=== PATIENT | female | born 1960 | race Hispanic/Latino ===

== ENCOUNTER 2017-01-29 22:48 | Inpatient (IN) | payer MEDICARE, MEDICAID ==
[~2017-01-29] VITALS: Ht 162.6 cm; Wt 97.5 kg
[~2017-01-29 22:48] MED LIST: ACET-97 PO; AMLO10TA3 PO; ASPI-628 PO; CHOL5000 PO; CLON0.1T PO; CRAN405C PO; DIL4T PO; DOCU100C8 PO; DULO60CA42 PO; INSU100V7 SUBQ; ISON300T4 PO; LACT1CAP65 PO; LEVO50TA6 PO; METO50TA3 PO; MS30TCR PO; MULT-185 PO; ONDA-54 PO; POLY17PO6 PO; PRAV40TA PO; PYRI50TA6 PO; RIFA300C4 PO; SENN8.6T11 PO; TRIA1TAB5 PO
[2017-01-29 22:55] VITALS: BP 174/72; PULSE 66; RESP 16; O2SAT 92
--- NOTE | 2017-01-29 23:22 | ED.REPORT ---
HPI-Chest Pain 40 and Over Date of Service Jan 29, 2017 ED Provider: Manny Beach DO Pt is a 56 year old female with a history of DM, HTN, hyperlipidemia, TIA, and CVA who presents to the ED via EMS complaining of tight chest pain onset 3 days ago. She c/o associated swelling in her legs and arms, SOB, and left-sided weakness. She denies cough. Nursing Notes Stated Complaint: CHEST PAIN Chief Complaint: Chest Pain Nursing Notes Reviewed: Yes Allergies: Coded Allergies: No Known Allergies (Verified Allergy, Unknown, 09/05/14) Scheduled Acetaminophen (Acetaminophen) 500 Mg Tablet 500 MG PO Q6 Amlodipine (Amlodipine) 10 Mg Tablet 10 MG PO DAILY Aspirin (Aspir 81) 81 Mg Tablet.dr 81 MG PO DAILY Cholecalciferol (Vitamin D3) (Vitamin D3) 5,000 Unit Capsule 5,000 UNIT PO DAILY Clonidine (Clonidine) 0.1 Mg Tablet 0.3 MG PO TID Cranberry Extract (Cranberry) 405 Mg Capsule 405 MG PO DAILY Docusate Sodium (Docusate Sodium) 100 Mg Capsule 100 MG PO BID Duloxetine (Cymbalta) 60 Mg Capsule.dr 60 MG PO DAILY Insulin Glargine (Lantus U100 Insulin Vial) 100 Unit/Ml Vial 6 UNIT SUBQ QPM- INSULIN Isoniazid (Isoniazid) 300 Mg Tablet 900 MG PO MOWEFR Lactobacillus Acidophilus (Probiotic) 1 Each Capsule 1 EACH PO DAILY Levothyroxine (Levothyroxine) 50 Mcg Tablet 50 MCG PO DAILY Metoprolol Tartrate (Metoprolol Tartrate) 50 Mg Tablet 50 MG PO BID Morphine Sulfate ER (MS Contin) 30 Mg Tablet.er 30 MG PO Q8 Multivitamin with Minerals (Multivitamins with Minerals) 1 Each Tablet 1 EACH PO DAILY Pravastatin (Pravastatin) 40 Mg Tablet 40 MG PO HS Pyridoxine HCl (Pyridoxine) 50 Mg Tablet 50 MG PO MOWEFR Rifampin (Rifampin) 300 Mg Capsule 600 MG PO MOWEFR Sennosides (Senna Lax) 8.6 Mg Tablet 8.6 MG PO DAILY Triamterene/HCTZ 75-50 mg (Triamterene/HCTZ 75-50 mg) 1 Each Tablet 1 EACH PO AM Scheduled PRN Hydromorphone (Dilaudid) 4 Mg Tablet 4 MG PO Q4 PRN PRN For Pain Ondansetron (Ondansetron) 8 Mg Tablet 8 MG PO Q6 PRN PRN For Nausea Polyethylene Glycol 3350 (Miralax) 17 Gm/Pkt Powd.pack 17 GM PO DAILY PRN PRN For Constipation General Time Seen by MD: 23:21 Chief Complaint Chest pain Hx Obtained From: Patient, EMS Arrived By: Ambulance Sudden in Onset?: No Onset Occurred: 3 days ago Symptom Duration: Since onset Location: : Substernal Quality: Painful Severity: Current: Moderate Severity: Maximum: Moderate Recent Healthcare: No recent doctor visit, No recent hospitalization Similar Sx Previous: Yes Similar Sx Previous: No Past Medical History Past Medical History Notes: PCP: Dr. Sinclair Past Medical History Pott's disease DM Hx of TIA HTN Hyperlipidemia Reports: Diabetes mellitus, Hyperlipidemia, Hypertension, Transient ischemic attack, Denies: Congestive heart failure Past Surgical History Denies Family History Reviewed, not relevant Smoking History Never Smoker Social History Alcohol Use: Denies alcohol use Drug Use: Denies drug use Other Social History: Good social support Ambulatory Status Independent Review of Systems Basic Review of Systems Eyes: Vision NL ENT: Hearing NL, No pharyngeal pain : No dysuria Hematologic: No bleeding Endocrine: No cold intolerance, No heat intolerance, No weight loss Constitutional: Reports: Weakness - generalized Respiratory: Reports: Shortness of breath, Denies: Non-productive cough Cardiovascular: Reports: Chest pain Musculoskeletal: Reports: Extremity swelling Complete sys rev & neg: except as marked. Physical Exam Initial Vital Signs Vital Signs (First) Date Time Temp Pulse Resp B/P Pulse Ox O2 Delivery O2 Flow Rate FiO2 01/29/17 22:55 66 16 174/72 92 Nasal Cannula 2 Initial VS: Reviewed Head / Eyes: Atraumatic, Normocephalic ENT: Mucous membranes moist, Conjunctiva normal, No scleral icterus Neck: Supple, Full range of motion Extremities: Vascular intact, Neuro intact Skin: Warm Neurologic: Alert, Oriented, Nonfocal Psychiatric: Mood/affect normal, Behavior normal General/Constitutional: Awake, Alert, Cooperative, Not toxic appearing Appearance / Presentation: Positive: Obese, morbidly Respiratory / Chest: Breath sounds = bilat Crackles. Cardiovascular: Heart rate NL, Regular rhythm Heart Sounds / Murmur: Positive: Systolic murmur present.. (ejection) Mild JVD. Abdomen: Atraumatic, Soft, Non-tender Interpretation & Diagnostics Lab Results Interpretation Result Diagram: 01/29/17 2310 01/29/17 2310 Test 01/29/17 22:10 01/29/17 23:10 Hold Ma Top Tube Received (Received) White Blood Count 8.4th/mm3 (3.8-10.1) Red Blood Count 3.12mil/mm3 (3.90-5.20) Hemoglobin 9.4g/dL (12.0-15.6) Hematocrit 30.0% (35.0-46.0) Mean Corpuscular Volume 96.2fL (81-100) Mean Corpuscular Hemoglobin 30.1pg (27.0-35.0) Mean Corpuscular Hemoglobin Concent 31.3% (32.0-37.0) Red Cell Distribution Width 13.4% (12.3-15.4) Platelet Count 307bil/L (150-400) Neutrophils (%) (Auto) 71.9% (40-74) Lymphocytes (%) (Auto) 19.4% (14-46) Monocytes (%) (Auto) 6.9% (4-12) Eosinophils (%) (Auto) 1.2% (0-5) Basophils (%) (Auto) 0.5% (0-3) Sodium Level 136mEq/L (134-144) Chloride Level 99mEq/L (97-108) Carbon Dioxide Level 25mmol/L (18-29) Blood Urea Nitrogen 30mg/dL (6-24) Creatinine 2.15mg/dL (0.57-1.00) Estimat Glomerular Filtration Rate 34mL/min (>59) Glucose Level 261mg/dL (60-99) Lactic Acid Level 1.2mmol/L (0.4-2.0) Calcium Level 8.7mg/dL (8.5-10.1) Magnesium Level 3.5mg/dL (1.6-2.6) Total Bilirubin 0.2mg/dL (0.0-1.2) Aspartate Amino Transf (AST/SGOT) 10U/L (0-50) Alanine Aminotransferase (ALT/SGPT) 7U/L (0-32) Alkaline Phosphatase 134U/L (25-150) Troponin T 0.027ug/L (0.0-0.011) Pro-B-Type Natriuretic Peptide 3040pg/mL (0-287) Total Protein 7.1g/dL (6.4-8.4) Albumin 3.5g/dL (3.4-5.0) Procalcitonin 0.16ng/mL (0.00-0.08) Point of Care Testing: Hemoglobin low General Lab Results Interp 1: Troponin # 1 elevated General Lab Results Interp 2: BNP elevated ECG Interpretation ECG Interpretation: Sinus rhythm with a rate of 66 Time: 23:04 Interpreted by: ED physician Normal ECG Interpretation: Normal sinus rhythm (no signs of hyperkalemia) Rhythm Strip Interpretation : Time: 01:08 Rhythm Strip Interpretation: Interpreted by me, Normal sinus rhythm (77 narrow complex T waves not peaked) BMP / CMP Interpretation K+ elevated X-Ray Chest Interpretation Chest Xray Interpretation: Vascular congestion. Exudates bilaterally. Interpretation / Wet Read by: Wet read ED physician (.) Re-Eval/Medical Decision Med Decision/Clinical Course 56-year-old female presents with tightness in her chest and swelling. She is found to be hypoxic and have signs of heart failure. EKG is nearly normal though. Laboratory work shows hyperkalemia with potassium greater than 6.0. Renal insufficiency with an elevated BUN/creatinine. Elevated troponin. IV access was obtained. She received IV fluids, IV insulin and IV diuretics and oral Kayexalate. She is making urine. She is breathing better on oxygen. She was hypoxic. Chest x-ray shows what looks like vascular congestion but there certainly could be pneumonia superimposed. Assessment hyperkalemia, congestive heart failure, renal insufficiency, elevated troponin, chest pain. Plan: We will treat her hyperkalemia and congestive heart failure and renal insufficiency on the inpatient basis. The hyperkalemia has been acutely treated in the ED and we will repeat the potassium. Further care per hospitalist service. Source of Hx: Old records Time of Eval: 00:39 Re-Evaluation/Progress Note: Pt rechecked. Informed pt of plan for admit. Pt understands and agrees with plan admit. All questions addressed. Consultation : Referral / Consult Name: Cristal Arriaza DO Consulted With: Hospitalist Call Returned at: 01:38 Concrete Paving Supervisor: Will see patient, Agrees with eval, Agrees with plan, Accepts admit Counseled Regarding: Diagnosis, Lab results, Need for admission Discharge & Departure Primary Impression: Hyperkalemia Additional Impressions: Acute renal insufficiency CHF (congestive heart failure) Congestive heart failure type: unspecified congestive heart failure type Congestive heart failure chronicity: unspecified congestive heart failure chronicity Qualified Code: I50.9 - Heart failure, unspecified Chest pain Chest pain type: unspecified Qualified Code: R07.9 - Chest pain, unspecified Disposition: ADMITTED TO HOSPITAL Discharge Condition All VS Reviewed: Yes Condition: Stable Referrals: Cathy Sinclair MD (PCP) Crit Care Except Billable Proc Time Spent: 135-164 minutes Services Performed: Patient management by me (managing her critical hyperkalemia), Time spent at bedside, Reviewing test results, Reviewing imaging , Discussing patient care, Time with fam/surrogate Scribe Attestation Portions of this note were transcribed by Ira Nobles. I, Dr. Beach personally performed the history, physical exam and medical decision-making; I reviewed and confirmed the accuracy of the information in the transcribed note. Signed by: Kacey Montalvo, 01/30/17 and 1:50. copies to: Cathy Sinclair MD, Todd P DO Jan 29, 2017 23:22 Ira Pulido Jan 30, 2017 00:44 copies to: Cathy Sinclair MD, Todd P DO Jan 29, 2017 23:22 Ira Pulido Jan 30, 2017 00:44
[2017-01-29 23:24] LABS: BASOPHILS % (AUTO) 0.5 % (0-3); EOSINOPHILS % (AUTO) 1.2 % (0-5); MONOCYTES % (AUTO) 6.9 % (4-12); Mean Corpuscular Hemoglobin 30.1 pg (27.0-35.0); Mean Corpuscular Volume 96.2 fL (81-100); NEUTROPHILS % (AUTO) 71.9 % (40-74); Platelet Count 307 bil/L (150-400)
[2017-01-29 23:47] LABS: TROPONIN T 0.027 ug/L (0.0-0.011)
[2017-01-29] MEDS ORDERED: Nitroglycerin 2% 1 Gm Ointment TOPICAL ONE (23:55)
[2017-01-29 23:59] LABS: Magnesium 3.5 mg/dL (1.6-2.6)
[2017-01-30] VITALS (11 sets, daily range): BP systolic 160–195; BP diastolic 64–94; PULSE 65–77; RESP 11–20; O2SAT 90–97
[2017-01-30] MEDS ORDERED: Albuterol 2.5 mg/3 mL Inhalation Solution NEB ONE (00:10)
[2017-01-30] MEDS ORDERED: Insulin Human REGular-Omnicell 100 Unit/mL IV ONE (00:10)
[2017-01-30] MEDS ORDERED: Furosemide 10 mg/mL 4 mL Inj IVPUSH ONE (00:40)
[2017-01-30] MEDS ORDERED: Dextrose 10% 250 ML IV ONE (01:29)
[2017-01-30] MEDS ORDERED: Alum-Mag Hydrox-Simeth 30 mL Suspension PO PRN (01:45)
[2017-01-30] MEDS ORDERED: Ondansetron 2 mg/mL 2 mL Inj IVPUSH PRN (01:45)
[2017-01-30] MEDS ORDERED: Senna-Docusate 8.6-50 mg Tablet PO PRN (01:45)
[2017-01-30] MEDS ORDERED: Polyethylene Glycol (PEG) 17 Gm Powder PO PRN (01:45)
--- NOTE | 2017-01-30 02:36 | PCM.HPMED ---
Subjective Date of Service Jan 30, 2017 Primary Provider: Admitting Physician: Cristal Arriaza DO Primary Care Physician: Cathy Sinclair MD Attending Physician: Cristal Arriaza DO Chief Complaint: Shortness of breath, chest pain History of Present Illness: Patient is a 56-year-old woman with history of diabetes mellitus type II, hypertension, hyperlipidemia, TIAs and CVAs with left-sided deficit, renal insufficiency, presents to [facility] via EMS with her son after progressing shortness of breath and chest pain going on for 3 days. Son conveys that her physicians at [facility] have changed her diuretics so that she would not urinate as much, and consequently has decreased her urination and has begun swelling up in her arms and legs. Patient has orthopnea, denies dry cough , describes chills in the last few hours, has dysuria, and nausea. On presentation, 37 Celsius, 66, 16, 174/72, 92% on 2 L nasal cannula. WBC 8.4, Hgb 9.4. Sodium 136, potassium 6.2, carbon dioxide, BUN 30, creatinine 2.15, glucose 261 , magnesium 3.5, troponin 0.027, BNP 3040, procalcitonin 0.16 Urine: 30 protein Moderate leukocyte esterase, 11-50 white blood cells, occasional epithelial cells, many urine yeast, sent for culture EKG: Sinus rhythm rate 66, normal axis, no signs of IVCD, QTC 477, signs of acute infarct, ischemia, or hypertrophy or strain. Chest x-ray: described as vascular congestion, bilateral exudates. Evaluation revealed hyperkalemia, urinary tract infection, hyperglycemia, evidence of fluid overload, renal insufficiency and possible pneumonia. Started on Lasix in the ER, Kayexalate, insulin, and admitted to the hospital for management and treatment. Review of Systems: A comprehensive review of systems was conducted with the patient and found to be negative except as above in the history of presenting illness. Allergies Coded Allergies: No Known Allergies (Verified Allergy, Unknown, 09/05/14) Home Medications Medication list as conveyed by EMS to emergency room staff, patient and family member unable to provide a list. Scheduled Acetaminophen (Acetaminophen) 500 Mg Tablet 500 MG PO Q6 Amlodipine (Amlodipine) 10 Mg Tablet 10 MG PO DAILY Aspirin (Aspir 81) 81 Mg Tablet.dr 81 MG PO DAILY Cholecalciferol (Vitamin D3) (Vitamin D3) 5,000 Unit Capsule 5,000 UNIT PO DAILY Clonidine (Clonidine) 0.1 Mg Tablet 0.3 MG PO TID Cranberry Extract (Cranberry) 405 Mg Capsule 405 MG PO DAILY Docusate Sodium (Docusate Sodium) 100 Mg Capsule 100 MG PO BID Duloxetine (Cymbalta) 60 Mg Capsule.dr 60 MG PO DAILY Insulin Glargine (Lantus U100 Insulin Vial) 100 Unit/Ml Vial 6 UNIT SUBQ QPM- INSULIN Isoniazid (Isoniazid) 300 Mg Tablet 900 MG PO MOWEFR Lactobacillus Acidophilus (Probiotic) 1 Each Capsule 1 EACH PO DAILY Levothyroxine (Levothyroxine) 50 Mcg Tablet 50 MCG PO DAILY Metoprolol Tartrate (Metoprolol Tartrate) 50 Mg Tablet 50 MG PO BID Morphine Sulfate ER (MS Contin) 30 Mg Tablet.er 30 MG PO Q8 Multivitamin with Minerals (Multivitamins with Minerals) 1 Each Tablet 1 EACH PO DAILY Pravastatin (Pravastatin) 40 Mg Tablet 40 MG PO HS Pyridoxine HCl (Pyridoxine) 50 Mg Tablet 50 MG PO MOWEFR Rifampin (Rifampin) 300 Mg Capsule 600 MG PO MOWEFR Sennosides (Senna Lax) 8.6 Mg Tablet 8.6 MG PO DAILY Triamterene/HCTZ 75-50 mg (Triamterene/HCTZ 75-50 mg) 1 Each Tablet 1 EACH PO AM Scheduled PRN Hydromorphone (Dilaudid) 4 Mg Tablet 4 MG PO Q4 PRN PRN For Pain Ondansetron (Ondansetron) 8 Mg Tablet 8 MG PO Q6 PRN PRN For Nausea Polyethylene Glycol 3350 (Miralax) 17 Gm/Pkt Powd.pack 17 GM PO DAILY PRN For Constipation PMH Pott's disease DM Hx of TIA HTN Hyperlipidemia Reports: Diabetes mellitus, Hyperlipidemia, Hypertension, Transient ischemic attack, Denies: Congestive heart failure Surgical History Denies any surgical history Social History Hx Alcohol Use: No Hx Substance Use: No Hx Tobacco Use: No Smoking Status: Never Smoker Living Arrangement: with Family Exam Vital Signs Vital Sign - Last Date Time Temp Pulse Resp B/P Pulse Ox O2 Delivery O2 Flow Rate FiO2 01/30/17 02:01 37 69 20 186/79 92 Nasal Cannula 3 Intake and Output 601/29/17 01/30/17 Cumulative From/Thru 14:59 22:59 06:59 01/29/17 22:55 - 01/30/17 01:30 Intake Total 250 ml 250 ml Balance 250 ml 250 ml Intake IV Total 250 ml 250 ml Exam General: Laying in bed, mildly uncomfortable, morbidly obese HEENT: Normocephalic, atraumatic, EOMI grossly, his membranes moist, neck supple without lymphadenopathy, conjunctiva pink Cardiovascular: Regular rate and rhythm, 2 out of 6 blowing systolic murmur right upper sternal border peripheral pulses 2/4 equal bilaterally to upper and lower extremities. Pulmonary: Bibasilar rales, rhonchi appreciated in mid left lung field, no wheezing Abdominal: Soft to palpation, bowel sounds present 4, no hepatosplenomegaly. Negative rebound. Extremities: Bilateral edema to upper and lower extremities, pitting edema to the level of the ankle, mild. No open sores, wounds, or weeping. No discoloration. Neuro: Grossly neurologically intact, cranial nerves II through XII intact. Skin: no erythema, ecchymosis MSK: Able to move extremities on their own volition, strength 5 out of 5 equal bilaterally to upper and lower extremities. Lymph: no cervical or supraclavicular lymphadenopathy Lab and Diagnostics Result Diagram: 01/29/17230901/29/172309 X-Rays, CTs and MRIs Chest x-ray performed January 29 2017 -described as vascular congestion, bilateral exudates. Wet read by ER physician 12-lead ECG EKG: Sinus rhythm rate 66, normal axis, no signs of IVCD, QTC 477, signs of acute infarct, ischemia, or hypertrophy or strain. Assessment & Plan 56-year-old woman with diabetes type II insulin using, chronic renal failure, presents with 3 days of increasing limb edema, shortness of breath and chest pain, denies history of CHF, stated that there was a recent change in her diuretic medication, found to have worsening renal function, likely pulmonary edema, elevated BNP, urine sample consistent with urinary tract infection, elevated pro-calcitonin, and hyperkalemia. Acute Hypoxemic respiratory failure, POA, active Volume emergency department and SPO2 of 90% on 5 L of nasal cannula oxygen Attributed to pulmonary edema secondary to possible congestive heart failure ABG now BiPAP if needed Treatment of fluid retention as below. Acute Hyperkalemia, POA, active Serum potassium 6.2, EKG did not show typical tenting, mental status intact. Kayexalate, insulin, Lasix. Recheck BMP Acute fluid retention with pulmonary edema, present on admission, active Possibly due to CHF new onset patient denies any previous history of heart failure, however has had chronic renal insufficiency. Possibly developing cardiorenal syndrome. 40 mg of Lasix has been given IV, Monitor in and out's, daily weights. 40 mg Lasix daily, repeat if necessary. Liver enzymes normal. Acute on chronic renal insufficiency, present on admission, active Serum creatinine 2.15, historically elevated but not greater than 1.27. As above, believed to be due to developing cardiorenal syndrome. Patient received fluid bolus, plus Lasix If no improvement after 2 doses of Lasix, consider nephrology consultation. Chronic diabetes mellitus type II Insulin using, uncontrolled, POA, active Blood glucose is 261, insulin given as above for potassium management Medium dose correctional insulin Home medications show large insulin 6 units subcutaneous nightly. Q4 Accu-Cheks Diabetes education Constant Carb diet, NPO until ECHO. Urinary tract infection, POA, active Dysuria, decreased urine frequency secondary to change in medication, moderate leukocyte esterase, positive white blood cells and urine. Patient has history of Klebsiella UTI. Ceftriaxone 2 g IV every 24 hours ProCalcitonin mildly elevated at 0.16 Elevated troponin, POA, active 0.027, appears to be at the level previous admission in 2013, felt to be secondary to demand ischemia from pulmonary edema, fluid retention, cardiorenal syndrome, decreased clearance from renal insufficiency, however infarction cannot be ruled out. Patient continues to complain of substernal chest pain, 8 out of 10, will trend troponin, if elevated start heparin drip, with cardiology consult. Place patient on telemetry Chronic hypertension, controlled, POA, active Most recent blood pressure 186/79 Amlodipine 10 mg daily, clonidine 0.3 milligrams 3 times a day, metoprolol tartrate 50 mg twice a day, triamterene/HCTZ 75-50 mg daily Await confirmation of medications. Lasix as above, metoprolol XL 25 mg now. Nitroglycerin drip, transverse CCU. Chronic Morbid obesity, POA, BMI 35.9. Active Nutrition/dietitian consult History of CVA and TIA, POA, active Continue home medications of ASA 81 mg daily, pravastatin 40 mg every night before bed, Blood pressure and diabetes management as above History of Ely disease, POA, stable Medications provided by EMS states she is still on rifampin and isoniazid, continue from ambulatory Awaiting confirmation from [facility] Chronic pain, POA, active Secondary to Ely disease Outpatient medications state MS Contin 30 mg by mouth every 8 hours scheduled, with Dilaudid 4 mg by mouth every 4 hours as needed for pain. Confirm current regimen in the morning Medication Reconciliation to be completed. Need updated medication list. Patient is admitted to inpatient status. Anticipate greater than two midnight stay based on acuity of presenting symptoms, anticipated management and potential for adverse advents. Pain Evaluation: Pain not Controlled GI Prophylaxis: H2 homero VTE Prophylaxis: Sub-Q Heparin (Unfractionated) Resuscitation Status: CPR: Attempt Resuscitation Attending Statement The patient was seen and examined together with house staff on 01/30/2017 and I agree with the history, exam and plan as outlined in the note above. Galdino Grewal DO Jan 30, 2017 02:36 Cristal Arriaza DO Jan 30, 2017 06:37
--- NOTE | 2017-01-30 02:51 | ABG ---
DateTimeAnalyzed 02:43:11 -_ pCO2 ___50.7__ -mmHg 35.0 45.0 pO2 ___72.2__ -mmHg 69.0 116 tHb ____9.2__ -g/dL O2Hb ___92.7__ -% COHb ____1.3__ -% 1.5 MetHb ____0.3__ -% sO2 ___94.1__ -% FIO2 ___37.0__ -% Drawn By MK - Date/Time Notified____ 02:50:00 -_ Oxygen Device 1 __CANNULA - Notified By MK - tO2 ___12.1__ -Vol% Bello test _Positive -
--- NOTE | 2017-01-30 02:58 | NUR ---
Ph did not result on the blood gas, Spoke with Dr Harrell and he was fine witht he results that were given and no need to restick the patient
[2017-01-30] MEDS ORDERED: Nitroglycerin 50 mg/250 mL D5W 50,000 MCG in IV Premix 1 EACH IV SCH (03:15)
[2017-01-30] MEDS ORDERED: MeTOProlol XL 25 mg ER24 Tablet PO ONE (03:20)
[2017-01-30] MEDS: cefTRIAXone Inj 2,000 MG in Dextrose 5% Minibag Plus 50 ML IV SCH (03:35)
[2017-01-30] MEDS: Pantoprazole 40 mg ER24 Tablet PO SCH (05:38)
[2017-01-30] MEDS ORDERED: Dextrose 10% 250 ML IV PRN (05:50)
--- NOTE | 2017-01-30 06:02 | NUR ---
PCC Admit and CCU in Transfer Admitted pt from ED @ 0230 for hyperkalemia, CP, ARF. Pt on 4.5L NC, dyspneic at rest and exertion, with panel builder, c/o 8/ mid-chest pain, non-radiating, NSR on tele, hypertensive with SBP 180's mmhg. Given morphine 5mg po and metoprolol 25mg po for HTN, relieved from chest pain, BP still high. Transfer in to CCU @ 0335 to start nitro gtt for CP and HTN. Pt voided total of 1200 via BSC, K+ 4.6 from 6.2.
[2017-01-30 07:37] LABS: BASOPHILS % (AUTO) 0.4 % (0-3); EOSINOPHILS % (AUTO) 1.3 % (0-5); Mean Corpuscular Hemoglobin 29.9 pg (27.0-35.0); Mean Corpuscular Volume 96.7 fL (81-100); NEUTROPHILS % (AUTO) 65.5 % (40-74); Platelet Count 268 bil/L (150-400)
[2017-01-30] MEDS: Sodium Chloride LOK Flush 10 mL Syringe IVFLUSH SCH ×2 (07:52→16:32)
--- NOTE | 2017-01-30 07:57 | DRSVH ---
PROCEDURE: X-RAY CHEST ONE VIEW, PORTABLE ([id number]) INDICATIONS: CHEST PAIN TECHNIQUE: One view of the chest was acquired. COMPARISON: 02/19/2015. FINDINGS: Surgical changes and devices: None. Lungs and pleura: Small bilateral pleural effusions left greater than right. Increased interstitial m arkings bilaterally, predominantly lower lobe. Mediastinum: Mediastinal contours appear normal. Heart size is normal. Bones and chest wall: No suspicious bony lesions. Overlying soft tissues appear unremarkable. IMPRESSION: Probable pulmonary edema with small bilateral pleural effusions. Superimposed or underlyi ng pneumonia cannot be excluded. Dictated by: Vishal Braswell M.D. on 01/30/2017 at 7:54 Approved by: Vishal Braswell M.D. on 01/30/2017 at 7:56
[2017-01-30] MEDS: Insulin Human REGular 300 Unit/3 mL Inj SUBQ SCH ×3 (08:14→20:39)
[2017-01-30] MEDS ORDERED: Furosemide 10 mg/mL 4 mL Inj IVPUSH SCH ×2 (08:30→16:13)
[2017-01-30] MEDS ORDERED: ACET500C49 PO (09:43)
[2017-01-30] MEDS ORDERED: ASPI-973 PO (09:43)
[2017-01-30] MEDS ORDERED: DOCU-41 PO (09:44)
[2017-01-30] MEDS ORDERED: SENN-133 PO (09:45)
[2017-01-30] MEDS: Heparin 5,000 Unit/mL Inj SUBQ SCH ×2 (10:18→16:32)
--- NOTE | 2017-01-30 14:06 | NUR ---
Social Work: Initial Assessment D: Per EMR review, pt is a 56 year old female admitted for Hyperkalemia, Acute Renal Failure, CHF. Pt is Medicare with [facility]; pt has no LTC insurance or VA benefits. PCP is Cathy Sinclair MD. NOK is Colt Batista, son, and Inga Batista dtr. Advanced directives information provided to patient. No RA Score entered. DRAWER IN STITCH BONDING MACHINE met with patient and son at bedside. Pt is [place] Islander speaking; pt declined to have an kiln puller and requested that her son provided translation. Sw information and role explained. See initial assessment. Pt lives with her family in [place]. Pt has not been using any DME but owns a walker and cane. Pt has a history with [facility] for RN, PT, kajal [facility]. Pt also had [facility] in the past but no longer requires these service. Pt has a history at [facility] and [facility]. Family and patient anticipate taking the patient home when she is medically stable. A: Pt who lives at home with family. P: Evolving; Anticipate pt to discharge home via POV. DRAWER IN STITCH BONDING MACHINE to continue to follow to assess for discharge needs. NICOLLE Silva Addendum: 01/30/17 at 1416 by ADWOA AUGUSTIN Amended: Links added.
--- NOTE | 2017-01-30 15:54 | PCM.PNMED ---
Subjective Date of Service Jan 30, 2017 Subjective Patient states that her breathing is much improved, and that her chest pain has essentially resolved. She has not other complaints at this time. No significant overnight events. Comprehensive ROS negative except as listed above. Exam Vital Signs Vital Sign - Last Date Time Temp Pulse Resp B/P Pulse Ox O2 Delivery O2 Flow Rate FiO2 01/30/17 15:28 Supplement Oxygen 01/30/17 11:14 36.8 72 14 195/76 96 4.50 Intake and Output 01/29/17 01/29/17 01/30/17 Cumulative From/Thru 15:00 23:00 07:00 01/29/17 22:55 - 01/30/17 06:30 Intake Total 412 ml 412 ml Output Total 1200 ml 1200 ml Balance -788 ml -788 ml Intake Oral 100 ml 100 ml IV Total 312 ml 312 ml Output Urine Total 1200 ml 1200 ml # Bowel Movements 0 0 Exam Gen: A/O x3 pleasant Arabic speaking woman in NAD Neck: supple, non tender, no thyromegaly, no JVD HEENT: PERRL, EOMI, no scleral icterus, no conjunctival pallor CV: RRR, 2/6 holosystolic murmur, no rubs or gallops Resp: Lungs CTA BL, no wheezing rales or rhonchi Abdomen: Obese, soft, nontender, no organomegaly, no rebound or guarding Extr: Mild BL LE edema, no cyanosis or clubbing Neuro: CN 2-12 grossly intact, no focal neurologic deficit Psych: appropriate mood and affect IVs and Medications Medications Reviewed: Medications were reviewed in detail Lab and Diagnostics Item Value Date Time Red Blood Count 2.71 mil/mm3 L 01/30/17726 Mean Corpuscular Volume 96.7 fL 01/30/17726 Mean Corpuscular Hemoglobin 29.9 pg 01/30/17726 Mean Corpuscular Hemoglobin Concent 30.9 % L 01/30/17726 Red Cell Distribution Width 13.2 % 01/30/17726 Neutrophils (%) (Auto) 65.5 % 01/30/17726 Lymphocytes (%) (Auto) 23.6 % 01/30/17726 Monocytes (%) (Auto) 9.0 % 01/30/17726 Eosinophils (%) (Auto) 1.3 % 01/30/17726 Basophils (%) (Auto) 0.4 % 01/30/17726 Estimat Glomerular Filtration Rate 38 mL/min 01/30/17726 Calcium Level 8.2 mg/dL L 01/30/17726 Total Bilirubin 0.2 mg/dL 01/30/17726 Aspartate Amino Transf (AST/SGOT) 12 U/L 01/30/17726 Alanine Aminotransferase (ALT/SGPT) 6 U/L 01/30/17726 Alkaline Phosphatase 116 U/L 01/30/17726 Troponin T 0.010 ug/L 01/30/17726 Total Protein 5.8 g/dL L 01/30/17726 Albumin 3.1 g/dL L 01/30/17726 Result Diagram: 01/30/1772601/30/17726 Microbiology Blood cultures pending Nasal MRSA negative X-Rays, CTs and MRIs X-RAY CHEST ONE VIEW, PORTABLE IMPRESSION: Probable pulmonary edema with small bilateral pleural effusions. Superimposed or underlying pneumonia cannot be excluded. Dictated by: Vishal Braswell M.D. on 01/30/2017 at 7:54 Approved by: Vishal Braswell M.D. on 01/30/2017 at 7:56 . 12-lead ECG EKG: Sinus rhythm rate 66, normal axis, no signs of IVCD, QTC 477, signs of acute infarct, ischemia, or hypertrophy or strain. Assessment & Plan 56-year-old woman with diabetes type II insulin using, chronic renal failure, presents with 3 days of increasing limb edema, shortness of breath and chest pain, denies history of CHF, stated that there was a recent change in her diuretic medication, found to have worsening renal function, likely pulmonary edema, elevated BNP, urine sample consistent with urinary tract infection, elevated pro-calcitonin, and hyperkalemia. Acute Hypoxemic respiratory failure, POA, improving -Initial respiratory distress in the emergency department with SPO2 of 90% on 5 L of nasal cannula oxygen -Attributed to pulmonary edema secondary to possible congestive heart failure -BiPAP if needed -Treatment of fluid retention as below. Acute Hyperkalemia, POA, Improved -Serum potassium 6.2, EKG did not show typical tenting, mental status intact. -Kayexalate, insulin, Lasix. -Repeat CMP K trended to normal Acute fluid retention with pulmonary edema, present on admission, active -Possibly due to CHF new onset patient denies any previous history of heart failure, however has had chronic renal insufficiency. Possibly developing cardiorenal syndrome. -40 mg of Lasix has been given IV, with be repeated daily -Monitor in and out's, daily weights. -Liver enzymes normal. Acute on chronic renal insufficiency, present on admission, improving -Serum creatinine 2.15 on admission, historically elevated but not greater than 1.27. now improving -As above, believed to be due to developing cardiorenal syndrome. -If no improvement after 2 doses of Lasix, consider nephrology consultation. Chronic diabetes mellitus type II Insulin using, uncontrolled, POA, active -Blood glucose is 261, insulin given as above for potassium management -Medium dose correctional insulin -Home medications show Glargine insulin 6 units subcutaneous nightly. -Q4 Accu-Cheks -Diabetes education -A1c pending -Constant Carb diet, NPO until ECHO. Urinary tract infection, POA, active -Dysuria, decreased urine frequency secondary to change in medication, moderate leukocyte esterase, positive white blood cells and urine. -Patient has history of Klebsiella UTI. -Ceftriaxone 2 g IV every 24 hours -ProCalcitonin mildly elevated at 0.16 -Urinalysis pending Elevated troponin of uncertain significance, POA, Resolved -0.027, appears to be at the level previous admission in 2013, felt to be secondary to demand ischemia from pulmonary edema, fluid retention, cardiorenal syndrome, decreased clearance from renal insufficiency, however infarction cannot be ruled out. -Chest pain resolved -Troponin normalized -Placed patient on telemetry Chronic hypertension, controlled, POA, active -Amlodipine 10 mg daily, clonidine 0.3 milligrams 3 times a day, metoprolol tartrate 50 mg twice a day, triamterene/HCTZ 75-50 mg daily -Await confirmation of medications. -Labetalol PRN for SBP > 180 or DBP > 120 -Lasix as above, metoprolol XL 25 mg now. -Nitroglycerin drip, transverse CCU. Chronic Morbid obesity, POA, BMI 35.9. Active -Nutrition/dietitian consult -Multiple person assist for lifts and transfers History of CVA and TIA, POA, active -Continue home medications of ASA 81 mg daily, pravastatin 40 mg every night before bed, -Blood pressure and diabetes management as above History of Ely disease, POA, stable -Medications provided by EMS states she is still on rifampin and isoniazid, continue from ambulatory -Awaiting confirmation from [facility] Chronic pain, POA, active -Secondary to Ely disease -Outpatient medications state MS Contin 30 mg by mouth every 8 hours scheduled, with Dilaudid 4 mg by mouth every 4 hours as needed for pain. -Confirm current regimen in the morning Disposition: Patient will likely be able to DC home with needs to be determined by PT in 1-2 days. Pain Evaluation: Adequate Pain Control GI Prophylaxis: H2 homero VTE Prophylaxis: Sub-Q Heparin (Unfractionated) VTE Mechanical Devices: Intermittant Pneumatic CD Resuscitation Status: CPR: Attempt Resuscitation Attending Statement The patient was seen and examined together with Dr. Yang on 01/30/2017 and I agree with the history, exam and plan as outlined in the note above. . Ankur Yang DO Jan 30, 2017 15:54 Av Calvillo MD Jan 30, 2017 17:00
[2017-01-30 18:43] LABS: APPEARANCE,URINE CLEAR (CLEAR,HAZY); COLOR,URINE YELLOW (YELLOW); OCCULT BLOOD,URINE NEGATIVE (NEGATIVE); UROBILINOGEN,URINE NORMAL (NORMAL)
[2017-01-30] MEDS ORDERED: HYDROMORPHONE 4 MG PO PRN (18:50)
[2017-01-30] MEDS: cloNIDine 0.1 mg Tablet PO SCH (20:24)
[2017-01-30] MEDS ORDERED: Non-Formulary Medication (Pravastatin 40 MG) PO SCH (21:00)
[2017-01-31] VITALS (8 sets, daily range): BP systolic 139–193; BP diastolic 63–79; PULSE 51–74; RESP 16–24; O2SAT 93–95
[2017-01-31] MEDS: Heparin 5,000 Unit/mL Inj SUBQ SCH ×3 (02:12→17:00)
[2017-01-31] MEDS: Insulin Human REGular 300 Unit/3 mL Inj SUBQ SCH ×4 (02:13→22:26)
[2017-01-31] MEDS ORDERED: 0.9% Sodium Chloride 100 ML ONE (02:13)
[2017-01-31] MEDS: cefTRIAXone Inj 2,000 MG in Dextrose 5% Minibag Plus 50 ML IV SCH (02:13)
[2017-01-31] MEDS: Sodium Chloride LOK Flush 10 mL Syringe IVFLUSH SCH ×3 (02:13→15:00)
[2017-01-31 03:22] LABS: BASOPHILS % (AUTO) 0.5 % (0-3); EOSINOPHILS % (AUTO) 2.4 % (0-5); MONOCYTES % (AUTO) 8.2 % (4-12); Mean Corpuscular Hemoglobin 29.6 pg (27.0-35.0); Mean Corpuscular Volume 94.4 fL (81-100); Platelet Count 279 bil/L (150-400)
[2017-01-31 04:33] LABS: Magnesium 2.8 mg/dL (1.6-2.6); Phosphorus 5.8 mg/dL (2.5-4.9)
--- NOTE | 2017-01-31 06:18 | NUR ---
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 At the beginning of the shift pt had a difficult time finding a position that made it feel easier to breathe. Pt will sit on the edge of the bed when feeling SOB. Pt continues to require 4L NC. Moisture was added to the supplemental oxygen.
--- NOTE | 2017-01-31 07:45 | DRSVH ---
PROCEDURE: X-RAY CHEST ONE VIEW, PORTABLE ([id number]) INDICATIONS: 56 year-old female with congestive heart failure. TECHNIQUE: One view of the chest was acquired. COMPARISON: [facility], CR, XR CHEST 1VW (PORTABLE), 01/29/2017, 22:59. [facility], CR, CHEST 1VW, 02/19/2015, 15:23. [facility], CR, CHEST 1VW (PORTABLE), 4, 20:31. FINDINGS: Surgical changes and devices: None. Lungs and pleura: No pleural effusions or pneumothorax. Bilateral perihilar opacities persist. Mediastinum: Mediastinal contours appear normal. Mild cardiomegaly is unchanged. Bones and chest wall: No suspicious bony lesions. Overlying soft tissues appear unremarkable. IMPRESSION: Persistent bilateral perihilar opacities, consistent with pulmonary edema and/or early br onchopneumonia. Dictated by: Erickson Multani M.D. on 01/31/2017 at 7:42 Approved by: Erickson Multani M.D. on 01/31/2017 at 7:43
[2017-01-31] MEDS: cloNIDine 0.1 mg Tablet PO SCH ×3 (07:55→22:26)
[2017-01-31] MEDS: Pantoprazole 40 mg ER24 Tablet PO SCH (07:55)
[2017-01-31] MEDS: DULoxetine 30 mg DR Capsule PO SCH (07:55)
[2017-01-31] MEDS ORDERED: DULOXETINE 60 MG PO SCH (08:30)
--- NOTE | 2017-01-31 13:16 | PCM.PNMED ---
Subjective Date of Service Jan 31, 2017 Subjective Patient states that her breathing is much improved, and that her chest pain has essentially resolved. She did state that upon rising to use the bathroom this AM she was very weak, on follow up she states that this weakness resolved No significant overnight events. Comprehensive ROS negative except as listed above. Exam Vital Signs Vital Sign - Last Date Time Temp Pulse Resp B/P Pulse Ox O2 Delivery O2 Flow Rate FiO2 01/31/17 12:35 37.2 63 20 160/66 95 Nasal Cannula 4.00 Intake and Output 01/30/17 01/30/17 01/31/17 Cumulative From/Thru 15:00 23:00 07:00 01/29/17 22:55 - 01/31/17 06:11 Intake Total 240 ml 650 ml 1302 ml Output Total 200 ml 1000 ml 2400 ml Balance 40 ml -350 ml -1098 ml Intake Oral 240 ml 550 ml 890 ml IV Total 100 ml 412 ml Output Urine Total 200 ml 1000 ml 2400 ml # Bowel Movements 0 Exam Gen: A/O x3 pleasant Hungarian speaking woman in NAD Neck: supple, non tender, no thyromegaly, no JVD HEENT: PERRL, EOMI, no scleral icterus, no conjunctival pallor CV: RRR, 2/6 holosystolic murmur, no rubs or gallops Resp: Lungs CTA BL, no wheezing rales or rhonchi Abdomen: Obese, soft, nontender, no organomegaly, no rebound or guarding Extr: Mild BL LE edema, no cyanosis or clubbing Neuro: CN 2-12 grossly intact, no focal neurologic deficit Psych: appropriate mood and affect IVs and Medications Medications Reviewed: Medications were reviewed in detail Lab and Diagnostics Item Value Date Time Red Blood Count 2.67 mil/mm3 L 01/31/17 0305 Mean Corpuscular Volume 94.4 fL 01/31/17 0305 Mean Corpuscular Hemoglobin Concent 31.3 % L 01/31/17 030 Mean Corpuscular Hemoglobin 29.6 pg 01/31/17 0305 Red Cell Distribution Width 13.2 % 01/31/17 0305 Neutrophils (%) (Auto) 63.0 % 01/31/17 0305 Lymphocytes (%) (Auto) 25.7 % 01/31/17 030 Monocytes (%) (Auto) 8.2 % 01/31/17 030 Eosinophils (%) (Auto) 2.4 % 01/31/17 030 Basophils (%) (Auto) 0.5 % 01/31/17 030 Estimat Glomerular Filtration Rate 35 mL/min 01/31/17 030 Calcium Level 8.2 mg/dL L 01/31/17 030 Phosphorus Level 5.8 mg/dL H 01/31/17 030 Magnesium Level 2.8 mg/dL H 01/31/17 030 Total Bilirubin 0.2 mg/dL 01/31/17 030 Aspartate Amino Transf (AST/SGOT) 10 U/L 01/31/17 030 Alanine Aminotransferase (ALT/SGPT) 5 U/L 01/31/17 030 Alkaline Phosphatase 115 U/L 01/31/17 030 Pro-B-Type Natriuretic Peptide 2161 pg/mL H 01/31/17 030 Total Protein 5.9 g/dL L 01/31/17 030 Albumin 3.0 g/dL L 01/31/17 030 Triglycerides Level 118 mg/dL 01/31/17 0305 Cholesterol Level 129 mg/dL 01/31/17 030 LDL Cholesterol, Calculated 62.4 mg/dL 01/31/17304 HDL Cholesterol 43 mg/dL 01/31/17 030 VLDL Cholesterol 23.600 mg/dL 01/31/17304 Cholesterol/HDL Ratio 3.00 01/31/17 030 Procalcitonin 0.12 ng/mL H 01/31/17 030 Result Diagram: 01/31/1730401/31/17304 Microbiology Blood cultures pending Nasal MRSA negative X-Rays, CTs and MRIs X-RAY CHEST ONE VIEW, PORTABLE IMPRESSION: Probable pulmonary edema with small bilateral pleural effusions. Superimposed or underlying pneumonia cannot be excluded. Dictated by: Vishal Braswell M.D. on 01/30/2017 at 7:54 Approved by: Vishal Braswell M.D. on 01/30/2017 at 7:56 X-RAY CHEST ONE VIEW, PORTABLE IMPRESSION: Persistent bilateral perihilar opacities, consistent with pulmonary edema and/or early bronchopneumonia. Dictated by: Erickson Multani M.D. on 01/31/2017 at 7:42 Approved by: Erickson Multani M.D. on 01/31/2017 at 7:43 . 12-lead ECG EKG: Sinus rhythm rate 66, normal axis, no signs of IVCD, QTC 477, signs of acute infarct, ischemia, or hypertrophy or strain. Assessment & Plan 56-year-old woman with diabetes type II insulin using, chronic renal failure, presents with 3 days of increasing limb edema, shortness of breath and chest pain, denies history of CHF, stated that there was a recent change in her diuretic medication, found to have worsening renal function, likely pulmonary edema, elevated BNP and hyperkalemia. Likely a component of Cardiorenal syndrome pending ECHO. Acute Hypoxemic respiratory failure, POA, improving -Initial respiratory distress in the emergency department with SPO2 of 90% on 5 L of nasal cannula oxygen -Attributed to pulmonary edema secondary to possible congestive heart failure -BiPAP if needed -Treatment of fluid retention as below. Acute Hyperkalemia, POA, Improved -Serum potassium 6.2, EKG did not show typical tenting, mental status intact. -Kayexalate, insulin, Lasix. -Repeat CMP K trended to normal Acute on chronic diastolic congestive heart failure, present on admission, active -Possibly due to CHF new onset patient denies any previous history of heart failure, however has had chronic renal insufficiency. Possibly developing cardiorenal syndrome. -40 mg of Lasix has been given IV in the ED -Increased to 60 mg IV lasix BID, added chlorthalidone and Aldactone to increase diuresis -Will closely monitor renal function -Monitor in and out's, daily weights. -Liver enzymes normal. Acute on chronic renal insufficiency, present on admission, improving -Serum creatinine 2.15 on admission, historically elevated but not greater than 1.27. now improving -believed to be due to developing cardiorenal syndrome. Chronic diabetes mellitus type II Insulin using, uncontrolled, POA, active -Blood glucose is 261, insulin given as above for potassium management -Medium dose correctional insulin -Home medications show Glargine insulin 6 units subcutaneous nightly. -Q4 Accu-Cheks -Diabetes education -A1c 9.9 -Constant Carb diet Elevated troponin of uncertain significance, POA, Resolved -0.027, appears to be at the level previous admission in 2014, felt to be secondary to demand ischemia from pulmonary edema, fluid retention, cardiorenal syndrome, decreased clearance from renal insufficiency, however infarction cannot be ruled out. -Chest pain resolved -Troponin normalized -Placed patient on telemetry Chronic hypertension, controlled, POA, active -Amlodipine 10 mg daily, clonidine 0.3 milligrams 3 times a day, metoprolol tartrate 50 mg twice a day, triamterene/HCTZ 75-50 mg daily -Await confirmation of medications. -Labetalol PRN for SBP > 180 or DBP > 120 -Diuresis as above, metoprolol XL 25 mg now. Chronic Morbid obesity, POA, BMI 35.9. Active -Nutrition/dietitian consult -Multiple person assist for lifts and transfers History of CVA and TIA, POA, active -Continue home medications of ASA 81 mg daily, pravastatin 40 mg every night before bed, -Blood pressure and diabetes management as above History of Ely disease, POA, stable -Medications provided by EMS states she is still on rifampin and isoniazid, continue from ambulatory -Awaiting confirmation from [facility] Chronic pain, POA, active -Secondary to Ely disease -Outpatient medications state MS Contin 30 mg by mouth every 8 hours scheduled, with Dilaudid 4 mg by mouth every 4 hours as needed for pain. -Confirm current regimen in the morning Disposition: Patient will likely be able to DC home with needs to be determined by PT in 1-2 days. Pain Evaluation: Adequate Pain Control GI Prophylaxis: H2 homero VTE Prophylaxis: Sub-Q Heparin (Unfractionated) VTE Mechanical Devices: Intermittant Pneumatic CD Resuscitation Status: CPR: Attempt Resuscitation Ankur Yang DO Jan 31, 2017 13:16 Av Calvillo MD Feb 01, 2017 20:11
[2017-01-31] MEDS: Furosemide 10 mg/mL 4 mL Inj IVPUSH SCH (14:59)
--- NOTE | 2017-01-31 16:36 | DRSVH ---
[facility] [address] [place] [address] Echocardiogram Report Name: ARYAN ALTAMIRANO Date: 02/01/20 17 Height: 60 in Hospital Exam Location: [facility] Weight: 240 lb Gender: Female BSA: 2.0 m2 : 1960 Age: 56 yrs BP: 193/79 mmHg Reason For Study: Edema Ordering Physician: Performed By: Scarlett Avitia Referring Physician: Dr. Cathy Sinclair Interpretation Summary The left ventricle is normal in size. There is mild concentric left ventricular hypertrophy. The ejection fraction is estimated to be 65-70%. The right ventricle is normal in size, thickness and function. The right ventricular systolic pressure is estimated at 35 mmHg assuming a right atrial pressure of 3 mm Hg. The IVC is of normal diameter and collapses greater than 50% with a sniff. This suggests a low right atrial pressure of 3 mm Hg. There is no pericardial effusion. There is no significant valvular heart disease. No other echocardiographic abnormalities seen. Procedure: A two-dimensional transthoracic echocardiogram with color flow and Doppler was performed. The study quality was technically adequate. Comparison is made with the echocardiogram of 09-06-14. The patient was in normal sinus rhythm during the exam. Left Ventricle: The left ventricle is normal in size. There is mild concentric left ventricular hypertrophy. The ejection fraction is estimated to be 65-70%. There are no focal wall motion abnormalities. Assessment of diastolic parameters indicates normal left ventricular diastolic function and normal filling pressures. Right Ventricle: The right ventricle is normal in size, thickness and function. The right ventricular systolic function is normal. Atria: The left atrium is mildly dilated. Right atrial size is normal. The interatrial septum is intact with no evidence for an atrial septal defect. Mitral Valve: The mitral valve leaflets appear mildly thickened, but open well. There is trace mitral regurgitation. Aortic Valve: The aortic valve is trileaflet. The aortic valve opens well. There is trace aortic regurgitation. Tricuspid Valve: The tricuspid valve is normal in structure and function. There is trace tricuspid regurgitation. The right ventricular systolic pressure is estimated at 35 mmHg assuming a right atrial pressure of 3 mm Hg. Pulmonic Valve: The pulmonic valve is normal in structure and function. There is a trace or physiologic amount of pulmonic regurgitation. Great Vessels: The aortic root is normal size. The dimensions of the ascending aorta are normal. The IVC is of normal diameter and collapses greater than 50% with a sniff. This suggests a low right atrial pressure of 3 mm Hg. Pericardium/ Pleura There is no pericardial effusion. There is no pleural effusion. MMode/2D Measurements & Calculations LVIDd: 4.5 cm LA dimension: 3.9 cm RA long axis Aortic Jxn: 2.4 cm LVIDs: 2.7 cm asc Aorta Diam FS: 40.6 % LA A2 area: 24.3 cm RA area IVSd: 1.3 cm LA A4 area: 26.2 cm Ao Arch Diam (Prox LVPWd: 1.1 cm LA length (vol) : 18.3 cm Trans): 3.0 cm RA vol LA vol: 85.9 ml : 48.4 ml LA vol index RA : 24.0 mm/ RVDd major IVC diam: 2.2 cm : 6.8 cm LV bo. diameter/BSA LV sys. diameter/BSA RVD1 (basal) RVD2 (mid): 3.5 cm (cm/m^2): 2.2 (cm/m^2): 1.3 Doppler Measurements & Calculations LVOT Max Bhanu MV E max bhanu MV E/A: 1.3 TR max bhanu : 173.0 cm/sec : 140.0 cm/sec Med Peak E' Bhanu : 282.6 cm/sec MV A max bhanu TR max PG : 110.4 cm/sec E/E' med: 21.6 : 32.0 mmHg MV P1/2t: 75.9 msec Lat Peak E' Bhanu PA V2 max : 104.0 cm/sec E/E' lat: 22.4 PA mean PG E/e' average PA Accel Time MV A dur: 0.14 sec : 0.16 sec MV dec time MV P1/2t max bhanu LV V1 max PG PA V2 mean : 0.25 sec : 73.9 cm/sec MVA(P1/2t): 2.9 cm2 LV V1 VTI: 45.4 cm Reading Physician:04:36 PM
[2017-02-01] VITALS (10 sets, daily range): BP systolic 142–172; BP diastolic 64–76; PULSE 47–80; RESP 16–20; O2SAT 88–95
[2017-02-01] MEDS: Sodium Chloride LOK Flush 10 mL Syringe IVFLUSH SCH ×3 (03:44→15:39)
[2017-02-01] MEDS: Heparin 5,000 Unit/mL Inj SUBQ SCH ×3 (03:44→15:43)
[2017-02-01] MEDS: Insulin Human REGular 300 Unit/3 mL Inj SUBQ SCH ×4 (03:45→20:34)
[2017-02-01 03:49] LABS: BASOPHILS % (AUTO) 0.5 % (0-3); EOSINOPHILS % (AUTO) 2.7 % (0-5); MONOCYTES % (AUTO) 10.1 % (4-12); Mean Corpuscular Hemoglobin 29.8 pg (27.0-35.0); Mean Corpuscular Volume 95.8 fL (81-100); NEUTROPHILS % (AUTO) 53.2 % (40-74); Platelet Count 281 bil/L (150-400)
[2017-02-01 03:58] LABS: INR 0.99 ratio
[2017-02-01 04:04] LABS: Magnesium 2.5 mg/dL (1.6-2.6); Phosphorus 5.4 mg/dL (2.5-4.9)
--- NOTE | 2017-02-01 06:34 | NUR ---
BGs Pt's HS BG was 307 and pt received 7 units of Regular Insulin. Pt's son was with her and we discussed what can happen to the body when BGs are high. The son appreciated that while his mother is staying there that she is made to eat foods that are less likely so spike her BG. According to pt's son yesterday was the pt's birthday and that she wanted him to bring her certain foods and so he brought her many carbohydrates. Pt did consume these carbohydrates earlier in the day and then at night before her BG was checked. Pt does have dietary booklets in the room that are in her primary language Slovak. Pt's son spoke with the pt about changing her eating habits. Pt still needs to be educated and encouraged on making better food choices to keep her BGs lower than they currently are.
[2017-02-01] MEDS: DULoxetine 30 mg DR Capsule PO SCH (09:50)
[2017-02-01] MEDS: Pantoprazole 40 mg ER24 Tablet PO SCH (09:50)
[2017-02-01] MEDS: Furosemide 10 mg/mL 4 mL Inj IVPUSH SCH ×2 (09:51→15:43)
[2017-02-01] MEDS: cloNIDine 0.1 mg Tablet PO SCH ×3 (09:56→20:32)
[2017-02-01] MEDS: Senna-Docusate 8.6-50 mg Tablet PO SCH ×2 (13:00→20:28)
[2017-02-01] MEDS ORDERED: HYDROcodone-APAP 5-325 mg Tablet PO ONE (13:20)
[2017-02-01] MEDS: Polyethylene Glycol (PEG) 17 Gm Powder PO SCH (13:29)
--- NOTE | 2017-02-01 17:00 | NUR ---
Social Work Note: Continued Discharge Planning Data& Assessment: Per MD pt is not medically ready for discharge at this time. SW met with pt and pt son at bedside to check in and assess for any unmet needs. Pt is still requiring oxygen at this time. Pt son confirmed plan to discharge home when medically ready. Pt and pt son deny any other needs at this time. SW to continue to follow. Plan: Anticipated discharge home via POV when medically ready. Pt and pt son deny any other needs at this time. SW to continue to follow. NICOLLE Arce
--- NOTE | 2017-02-01 17:01 | NUR ---
WILLIAM Signed NICOLLE Arce
--- NOTE | 2017-02-01 19:00 | NUR ---
Resp/Activity/Pain/Tele Patient a/o x 3, guinean speaking only. Family at bedside throughout the shift to interpret for patient. Patient c/o headache, Tylenol given without effect. Family requested IbupropMD carlos paged and new orders received. Headache resolved with Dilaudid. Patient oob to chair for meals, amb in room with sba. Patient showered this afternoon with assist of daughter. O2 86-88% RA, O2 @ 2.5 L reapplied, sat 94-96%. Lungs with crackles in the bases bilat. See vitals, Tele SB 40-50's min.
--- NOTE | 2017-02-01 20:29 | PCM.PNMED ---
Subjective Date of Service Feb 01, 2017 Subjective Overnight patient became bradycardia and systolic blood pressures were in the 170-180 range. Patient was on metoprolol 50 twice a day which was held after this morning dose. Throughout the day the patient remained bradycardic with 51 and 47. On discussed with patient she denies ongoing symptoms except for continued shortness of breath, although it is noted that she is now laying flat with minimal orthopnea. When encouraged to ambulate the patient said she was going to sleep and pretended to be asleep. Patient's daughter was translating as she did not wish to have a 411 directory assistance operator. It is obvious from conversation the patient was not compliant with dietary restrictions even while in the hospital. Other than shortness of breath the patient denies additional symptoms. Exam Vital Signs Vital Sign - Last Date Time Temp Pulse Resp B/P Pulse Ox O2 Delivery O2 Flow Rate FiO2 02/01/17 20:13 36.8 47 20 145/70 94 Nasal Cannula 1.00 Intake and Output 01/31/17 01/31/17 02/01/17 Cumulative From/Thru 15:00 23:00 07:00 01/29/17 22:55 - 02/01/17 06:18 Intake Total 840 ml 200 ml 2342 ml Output Total 750 ml 700 ml 700 ml 4550 ml Balance -750 ml 140 ml -500 ml -2208 ml Intake Oral 840 ml 200 ml 1930 ml IV Total 412 ml Output Urine Total 750 ml 700 ml 700 ml 4550 ml # Bowel Movements 0 0 Exam Gen: A/O x3 pleasant Slovak speaking woman in NAD; speaking easily CV: RRR, 2/6 holosystolic murmur, no rubs or gallops Resp: Lungs CTA BL, no wheezing rales or rhonchi Abdomen: Obese, soft, nontender, no organomegaly, no rebound or guarding Extr: Mild BL LE edema, no cyanosis or clubbing Neuro: CN 2-12 grossly intact, no focal neurologic deficit IVs and Medications Medications Reviewed: Medications were reviewed in detail Lab and Diagnostics Result Diagram: 02/01/17 0330 02/01/17 033 Microbiology Blood cultures pending Nasal MRSA negative X-Rays, CTs and MRIs X-RAY CHEST ONE VIEW, PORTABLE IMPRESSION: Probable pulmonary edema with small bilateral pleural effusions. Superimposed or underlying pneumonia cannot be excluded. Dictated by: Vishal Braswell M.D. on 01/30/2017 at 7:54 Approved by: Vishal Braswell M.D. on 01/30/2017 at 7:56 X-RAY CHEST ONE VIEW, PORTABLE IMPRESSION: Persistent bilateral perihilar opacities, consistent with pulmonary edema and/or early bronchopneumonia. Dictated by: Erickson Multani M.D. on 01/31/2017 at 7:42 Approved by: Erickson Multani M.D. on 01/31/2017 at 7:43 . 12-lead ECG EKG: Sinus rhythm rate 66, normal axis, no signs of IVCD, QTC 477, signs of acute infarct, ischemia, or hypertrophy or strain. Assessment & Plan 56-year-old woman with diabetes type II insulin using, chronic renal failure, presents with 3 days of increasing limb edema, shortness of breath and chest pain, denies history of CHF, stated that there was a recent change in her diuretic medication, found to have worsening renal function, likely pulmonary edema, elevated BNP and hyperkalemia. Likely a component of Cardiorenal syndrome pending ECHO. Acute Hypoxemic respiratory failure, POA, improving -Initial respiratory distress in the emergency department with SPO2 of 90% on 5 L of nasal cannula oxygen -Attributed to pulmonary edema secondary to possible congestive heart failure -BiPAP if needed -Treatment of fluid retention as below. Chronic diabetes mellitus type II Insulin using, uncontrolled, POA, active -Blood glucose is 261, insulin given as above for potassium management -Medium dose correctional insulin -Home medications show Glargine insulin 6 units subcutaneous nightly. -Q4 Accu-Cheks -Diabetes education -A1c 9.9 -Constant Carb diet -Recommend using 411 directory assistance operator to impress upon the patient's mind the seriousness of her condition and the consequences noncompliance Acute on Chronic hypertension, controlled, POA, active -Amlodipine 10 mg daily, clonidine 0.3 milligrams 3 times a day, metoprolol tartrate 50 mg twice a day, triamterene/HCTZ 75-50 mg daily -Await confirmation of medications. -Patient on metoprolol but this is causing bradycardia and was stopped 02/01/17 -Diuresis as above -Changed metoprolol to labetalol 200 mg twice a day and this is currently being held due to the effects of the metoprolol -Blood pressure improved today as beta homero on hold Acute on chronic renal insufficiency, present on admission, ongoing -Serum creatinine 2.15 on admission, historically elevated but not greater than 1.27. now improving -Unlikely to be cardiorenal syndrome as there is no overwhelming findings on echo to suggest pump failure, and the IVC does not appear to be congested -Likely due to diabetic and hypertensive nephrosclerosis -Patient still on 3 diuretics including furosemide, spironolactone, and chlorthalidone;. Stop Tomorrow if creatinine increases Acute on chronic diastolic congestive heart failure, present on admission, active -Echo underwhelming, although she probably does have some early diastolic failure -Continue 60 mg IV lasix BID, added chlorthalidone and Aldactone to increase diuresis today and likely discontinue tomorrow -Monitor in and out's, daily weights. Acute Hyperkalemia, POA, resolved -Serum potassium 6.2, EKG did not show peaked T waves, mental status intact. -Kayexalate, insulin, Lasix. -Repeat CMP K trended to normal Elevated troponin of uncertain significance, POA, Resolved -0.027, appears to be at the level previous admission in 2013, felt to be secondary to demand ischemia from pulmonary edema, fluid retention, cardiorenal syndrome, decreased clearance from renal insufficiency, however infarction cannot be ruled out. -Chest pain resolved -Troponin normalized Chronic Morbid obesity, POA, BMI 35.9. Active -Nutrition/dietitian consult -Multiple person assist for lifts and transfers History of CVA and TIA, POA, active -Continue home medications of ASA 81 mg daily, pravastatin 40 mg every night before bed, -Blood pressure and diabetes management as above Chronic pain, POA, active -Secondary to Ely disease -Outpatient medications state MS Contin 30 mg by mouth every 8 hours scheduled, with Dilaudid 4 mg by mouth every 4 hours as needed for pain. -Currently controlling pain with IV Dilaudid and morphine Disposition: Likely discharge tomorrow or Thursday. We will discuss with social work about needs: Home Pain Evaluation: Adequate Pain Control GI Prophylaxis: H2 homero VTE Prophylaxis: Sub-Q Heparin (Unfractionated) VTE Mechanical Devices: Intermittant Pneumatic CD Resuscitation Status: CPR: Attempt Resuscitation Attending Statement The patient was seen and examined together with Dr. Quinn on 02/01/2017 and I agree with the history, exam and plan as outlined in the note above. . Erwin Quinn DO Feb 01, 2017 20:29 Av Calvillo MD Feb 06, 2017 06:22
[2017-02-02] VITALS (9 sets, daily range): BP systolic 141–188; BP diastolic 69–91; PULSE 50–59; RESP 16–20; O2SAT 93–99
[2017-02-02] MEDS: Heparin 5,000 Unit/mL Inj SUBQ SCH ×4 (02:08→23:47)
[2017-02-02] MEDS: Sodium Chloride LOK Flush 10 mL Syringe IVFLUSH SCH ×4 (02:08→20:44)
[2017-02-02] MEDS: Insulin Human REGular 300 Unit/3 mL Inj SUBQ SCH ×4 (02:09→20:44)
[2017-02-02 03:47] LABS: BASOPHILS % (AUTO) 0.6 % (0-3); EOSINOPHILS % (AUTO) 3.8 % (0-5); MONOCYTES % (AUTO) 7.9 % (4-12); Mean Corpuscular Hemoglobin 29.7 pg (27.0-35.0); Mean Corpuscular Volume 95.4 fL (81-100); NEUTROPHILS % (AUTO) 55.8 % (40-74); Platelet Count 302 bil/L (150-400)
[2017-02-02 04:12] LABS: Magnesium 2.2 mg/dL (1.6-2.6); Phosphorus 5.9 mg/dL (2.5-4.9)
--- NOTE | 2017-02-02 04:41 | NUR ---
HR/Respiratory/BM Pt's HR was in the 40s when pt's VS were taken. Pt's 200mg labetolol was held due to pt's SB HR in the 40s. MD was notified that the medication was held. Pt's SpO2 >92% on 1L NC this evening. Pt did have a BM in [facility] on 02/02/2017 and the scheduled senna was withheld this evening at [facility].
[2017-02-02] MEDS: Senna-Docusate 8.6-50 mg Tablet PO SCH ×2 (09:26→20:21)
[2017-02-02] MEDS: Pantoprazole 40 mg ER24 Tablet PO SCH (09:26)
[2017-02-02] MEDS: DULoxetine 30 mg DR Capsule PO SCH (09:27)
[2017-02-02] MEDS: Polyethylene Glycol (PEG) 17 Gm Powder PO SCH (09:27)
[2017-02-02] MEDS: Furosemide 10 mg/mL 4 mL Inj IVPUSH SCH (09:27)
[2017-02-02] MEDS: cloNIDine 0.1 mg Tablet PO SCH ×3 (09:32→20:38)
--- NOTE | 2017-02-02 18:04 | NUR ---
Resp Eval Patient RA sat at rest 93%. Amb approx 25 feet, RA sat dropped quickly to 73%, patient appeared lighted-headed and had to sit and rest for approx 1-2 min then able to amb back to room with sat 86-87%.
--- NOTE | 2017-02-02 18:06 | NUR ---
HTN/Tele/Resp Patient a/o x 3, french speaking only, interpetor used for assessments and prn. Patient denies headache or pain this shift. Taking diet well. Blood glucose 200's, Insulin given. Lungs with crackles bilat bases this a.m. patient c/o sob intermittently at rest and with activity. Patient also states "I feel drunk and whoozy when I sit up." SBP 188, tele SB 50's, aware and new orders recieved. SBP 140's this afternoon.
--- NOTE | 2017-02-02 22:58 | PCM.PNMED ---
Subjective Date of Service Feb 02, 2017 Subjective Overnight Events. Patient had sinus bradycardia with HR into the 40's. Labetolol held. She is resting in bed comfortably and in no acute distress. The patient reports feeling better than the day prior. She does have some SOB. Otherwise the patient denies headache, dizziness, sore throat, cough, chest pain, abdominal pain, nausea, vomiting, constipation, and diarrhea. The patient is voiding and eliminating without difficulty. Exam Vital Signs Vital Sign - Last Date Time Temp Pulse Resp B/P Pulse Ox O2 Delivery O2 Flow Rate FiO2 02/02/17 20:54 Supplement Oxygen 02/02/17 20:54 36.8 53 16 141/69 99 1.00 Intake and Output 02/01/17 02/01/17 02/02/17 Cumulative From/Thru 15:00 23:00 07:00 01/29/17 22:55 - 02/02/17 05:22 Intake Total 1400 ml 3742 ml Output Total 1100 ml 5650 ml Balance 300 ml -1908 ml Intake Oral 1400 ml 3330 ml IV Total 412 ml Output Urine Total 1100 ml 5650 ml # Bowel Movements 0 0 Exam General: No acute distress, well-developed, well-nourished, appropriately interactive, serbian speaking HEENT: Normocephalic, atraumatic. Anicteric sclerae Cardiovascular: bradycardic, regular rhythm, systolic murmur, no rubs, or gallops appreciated Pulmonary: Clear to auscultation bilaterally with no crackles, wheezes, or rhonchi. Has pain in lower left rib with deep inspiration. Abdomen: Bowel tones present. Soft, nontender, nondistended. Extremities: Mild Bilateral LE edema. Neurological: Cranial nerves II-XII grossly intact. . Psychiatric: Normal mood and affect. Alert and oriented to person, place, and time. Lab and Diagnostics Result Diagram: 02/02/17 03302/02/17 033 Microbiology Blood cultures pending Nasal MRSA negative X-Rays, CTs and MRIs X-RAY CHEST ONE VIEW, PORTABLE IMPRESSION: Probable pulmonary edema with small bilateral pleural effusions. Superimposed or underlying pneumonia cannot be excluded. Dictated by: Vishal Braswell M.D. on 01/30/2017 at 7:54 Approved by: Vishal Braswell M.D. on 01/30/2017 at 7:56 X-RAY CHEST ONE VIEW, PORTABLE IMPRESSION: Persistent bilateral perihilar opacities, consistent with pulmonary edema and/or early bronchopneumonia. Dictated by: Erickson Multani M.D. on 01/31/2017 at 7:42 Approved by: Erickson Multani M.D. on 01/31/2017 at 7:43 . 12-lead ECG EKG: Sinus rhythm rate 66, normal axis, no signs of IVCD, QTC 477, signs of acute infarct, ischemia, or hypertrophy or strain. Assessment & Plan 56-year-old woman with diabetes type II insulin using, chronic renal failure, presents with 3 days of increasing limb edema, shortness of breath and chest pain, denies history of CHF, stated that there was a recent change in her diuretic medication, found to have worsening renal function, likely pulmonary edema, elevated BNP and hyperkalemia. Likely a component of Cardiorenal syndrome pending ECHO. Acute Hypoxemic respiratory failure, POA, improving -Initial respiratory distress in the emergency department with SPO2 of 90% on 5 L of nasal cannula oxygen -Attributed to pulmonary edema secondary to possible congestive heart failure -BiPAP if needed -Treatment of fluid retention as below. Chronic diabetes mellitus type II Insulin using, uncontrolled, POA, active -Blood glucose is 178, insulin given as below for potassium management -Medium dose correctional insulin -Home medications show Glargine insulin 6 units subcutaneous nightly. -Q4 Accu-Cheks -Diabetes education -A1c 9.9 -Constant Carb diet -Recommend using meat carver to impress upon the patient's mind the seriousness of her condition and the consequences noncompliance Acute on Chronic hypertension, controlled, POA, active -Amlodipine 10 mg daily, clonidine 0.3 milligrams 3 times a day, metoprolol tartrate 50 mg twice a day, triamterene/HCTZ 75-50 mg daily -Patient was on metoprolol but this is causing bradycardia and was stopped - discontinued labetolol due to bradycardia - Changed lasix to torsemide 60 mg daily - Started lisinopril 10 mg daily - Consider Imdur if BP not regulated. Acute on chronic renal insufficiency, present on admission, ongoing -Serum creatinine 2.15 on admission, historically elevated but not greater than 1.27. 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 Stop Tomorrow if creatinine increases Acute on chronic diastolic congestive heart failure, present on admission, active -Echo underwhelming, although she probably does have some early diastolic failure -Continue 60 mg IV torsemide, chlorthalidone and Aldactone to increase diuresis today and likely discontinue tomorrow -Monitor in and out's, daily weights. - Recommend for CHF clinic Acute Hyperkalemia, POA, resolved -Serum potassium 6.2, EKG did not show peaked T waves, mental status intact. -Kayexalate, insulin, Lasix were done and patient improved. -Repeat CMP K trended to normal Elevated troponin of uncertain significance, POA, Resolved -0.027, appears to be at the level previous admission in 2013, felt to be secondary to demand ischemia from pulmonary edema, fluid retention, cardiorenal syndrome, decreased clearance from renal insufficiency, however infarction cannot be ruled out. -Chest pain resolved -Troponin normalized Chronic Morbid obesity, POA, BMI 35.9. Active -Nutrition/dietitian consult -Multiple person assist for lifts and transfers History of CVA and TIA, POA, active -Continue home medications of ASA 81 mg daily, pravastatin 40 mg every night before bed, -Blood pressure and diabetes management as above Chronic pain, POA, active -Secondary to Ely disease -Outpatient medications state MS Contin 30 mg by mouth every 8 hours scheduled, with Dilaudid 4 mg by mouth every 4 hours as needed for pain. -Currently controlling pain with IV Dilaudid and morphine Disposition: Likely discharge tomorrow or Thursday. We will discuss with social work about needs: Home Pain Evaluation: Adequate Pain Control GI Prophylaxis: H2 homero VTE Prophylaxis: Sub-Q Heparin (Unfractionated) VTE Mechanical Devices: Intermittant Pneumatic CD Resuscitation Status: CPR: Attempt Resuscitation Attending Statement The patient was seen and examined together with Dr. Erickson on 02/02/2017 and I agree with the history, exam and plan as outlined in the note above. . Eric Erickson DO Feb 02, 2017 22:32 Av Calvillo MD Feb 06, 2017 06:32
[2017-02-03] VITALS (8 sets, daily range): BP systolic 154–176; BP diastolic 53–75; PULSE 49–70; RESP 16–18; O2SAT 90–95
[2017-02-03] MEDS: Insulin Human REGular 300 Unit/3 mL Inj SUBQ SCH ×4 (02:30→21:39)
--- NOTE | 2017-02-03 05:16 | NUR ---
Blood Pressure / Respiratory Systolic BP this AM in 170s; paged, order placed for one time PO isosorbide mononitrate. Pt on 0.5L NC throughout shift; attempted to wean to RA this AM but SpO2 89-91%. Pt placed back on 0.5L NC. Tele SB 50s.
[2017-02-03] MEDS ORDERED: Isosorbide Mononitrate 30 mg ER24 Tablet PO ONE (05:35)
[2017-02-03] MEDS: Pantoprazole 40 mg ER24 Tablet PO SCH (05:45)
[2017-02-03 06:19] LABS: BASOPHILS % (AUTO) 0.6 % (0-3); EOSINOPHILS % (AUTO) 2.4 % (0-5); MONOCYTES % (AUTO) 6.9 % (4-12); Mean Corpuscular Volume 91.9 fL (81-100); NEUTROPHILS % (AUTO) 62.3 % (40-74); Platelet Count 284 bil/L (150-400)
[2017-02-03] MEDS: Senna-Docusate 8.6-50 mg Tablet PO SCH ×2 (11:12→21:35)
[2017-02-03] MEDS: DULoxetine 30 mg DR Capsule PO SCH (11:12)
[2017-02-03] MEDS: cloNIDine 0.1 mg Tablet PO SCH ×3 (11:12→21:35)
[2017-02-03] MEDS: Sodium Chloride LOK Flush 10 mL Syringe IVFLUSH SCH ×3 (11:13→21:40)
[2017-02-03] MEDS: Heparin 5,000 Unit/mL Inj SUBQ SCH ×2 (11:14→15:30)
[2017-02-03] MEDS: Polyethylene Glycol (PEG) 17 Gm Powder PO SCH (11:14)
--- NOTE | 2017-02-03 11:27 | NUR ---
WILLIAM Signed @ 1010 AM
--- NOTE | 2017-02-03 18:01 | NUR ---
Glucose/HTN/Tele/Activity/Resp Patient polish speaking only, a/o x 4, per interpretor. Patient denies chest pain, but c/o pain with deep breaths. Patient c/o sob at rest and with activity O2 @ 1 L lungs decreased bilat. Blood glucose 189, 281, notified to waldo for restart on Lantus. Patient taking diet well. SBP 140-180's, tele SB-SR 50-60's. Patient declined amb or showering this shift. Patient c/o bilat LE edema, encouraged patient to amb with staff and at rest to elevate LE above heart. Interpretor used for assessment, VALERIO and MD haas.
[2017-02-03] MEDS ORDERED: Insulin GLARgine 100 Unit/mL Syringe SUBQ SCH (21:00)
--- NOTE | 2017-02-03 22:26 | PCM.PNMED ---
Subjective Date of Service Feb 03, 2017 Subjective Overnight Events. Systolic BP into the 170's, one time imdur PO given Patient is resting in bed comfortably and in no acute distress. Spoke to patient through video director of business continuity and she mentions that she doesn't feel her chest pain, shortness of breath or swelling has gotten any better throughout her hospital stay. Her chest pain and SOB occur when getting up to use the bathroom and when getting back into bed. She also mentions she has urinary frequency from the medications we are giving her, but no improvement in swelling. The patient denies headache, dizziness,abdominal pain, nausea, vomiting, constipation, and diarrhea. The patient is voiding and eliminating without difficulty. Exam Vital Signs Vital Sign - Last Date Time Temp Pulse Resp B/P Pulse Ox O2 Delivery O2 Flow Rate FiO2 02/03/17 21:42 Supplement Oxygen 02/03/17 21:42 36.6 52 18 160/75 93 1.00 Intake and Output 02/02/17 02/02/17 02/03/17 Cumulative From/Thru 15:00 23:00 07:00 01/29/17 22:55 - 02/03/17 05:20 Intake Total 300 ml 1036 ml 300 ml 5378 ml Output Total 1000 ml 1300 ml 1500 ml 9450 ml Balance -700 ml -264 ml -1200 ml -4072 ml Intake Oral 300 ml 1036 ml 300 ml 4966 ml IV Total 412 ml Output Urine Total 1000 ml 1300 ml 1500 ml 9450 ml # Voids 2 2 # Bowel Movements 1 1 0 2 Exam General: No acute distress, well-developed, well-nourished, appropriately interactive. Guinean Speaking. HEENT: Normocephalic, atraumatic. Anicteric sclerae Neck: Supple with full range of motion. Cardiovascular: bradycardic with no murmurs, rubs, or gallops appreciated Pulmonary: Clear to auscultation bilaterally with no crackles, wheezes, or rhonchi. Normal respiratory effort with no use of accessory muscles. Abdomen: Bowel tones present. Soft, nontender, nondistended. Extremities: 1-2+ pedal edema bilaterally Neurological: Cranial nerves grossly intact. Psychiatric: Normal mood and affect. Alert and oriented to person, place, and time. Lab and Diagnostics Result Diagram: 02/03/17 0535 02/03/17 0535 Microbiology Blood cultures pending Nasal MRSA negative X-Rays, CTs and MRIs X-RAY CHEST ONE VIEW, PORTABLE IMPRESSION: Probable pulmonary edema with small bilateral pleural effusions. Superimposed or underlying pneumonia cannot be excluded. Dictated by: Vishal Braswell M.D. on 01/30/2017 at 7:54 Approved by: Vishal Braswell M.D. on 01/30/2017 at 7:56 X-RAY CHEST ONE VIEW, PORTABLE IMPRESSION: Persistent bilateral perihilar opacities, consistent with pulmonary edema and/or early bronchopneumonia. Dictated by: Erickson Multani M.D. on 01/31/2017 at 7:42 Approved by: Erickson Multani M.D. on 01/31/2017 at 7:43 . 12-lead ECG EKG: Sinus rhythm rate 66, normal axis, no signs of IVCD, QTC 477, signs of acute infarct, ischemia, or hypertrophy or strain. Assessment & Plan 56-year-old woman with diabetes type II insulin using, chronic renal failure, presents with 3 days of increasing limb edema, shortness of breath and chest pain, denies history of CHF, stated that there was a recent change in her diuretic medication, found to have worsening renal function, likely pulmonary edema, elevated BNP and hyperkalemia. Likely a component of Cardiorenal syndrome pending ECHO. Chest Pain, ongoing Patient mentions substernal chest pressure 6/10 with shortness of breath that occurs with activity since 3 days prior to admission. Likely stable angina. - Patient reports no improvement of chest pain while here - Ordered Lexiscan stress test for tomorrow. - NPO after midnight, no caffeine or nitro. - Will contact cardiology after results of lexiscan. Acute Hypoxemic respiratory failure, POA, improving -Initial respiratory distress in the emergency department with SPO2 of 90% on 5 L of nasal cannula oxygen -Attributed to pulmonary edema secondary to possible congestive heart failure -BiPAP if needed -Treatment of fluid retention as below. Chronic diabetes mellitus type II Insulin using, uncontrolled, POA, active -Blood glucose is concistently above 160, insulin given as below for potassium management -Medium dose correctional insulin -Started 1/2 home lantus dose (5 units qhs). -Q4 Accu-Cheks -Diabetes education -A1c 9.9 -Stressed importance of cutting out sugar and salt. -Recommend using securities supervisor to impress upon the patient's mind the seriousness of her condition and the consequences noncompliance Acute on Chronic hypertension, controlled, POA, active -Amlodipine 10 mg daily, clonidine 0.3 milligrams 3 times a day, metoprolol tartrate 50 mg twice a day, triamterene/HCTZ 75-50 mg daily -Patient was on metoprolol but this is causing bradycardia and was stopped - discontinued labetolol due to bradycardia - Continue torsemide 60 mg daily - Continue lisinopril 10 mg daily - Consider Imdur if BP not regulated. Acute on chronic renal insufficiency, present on admission, ongoing -Serum creatinine 2.15 on admission, historically elevated but not greater than 1.27. 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 Stop Tomorrow if creatinine increases Acute on chronic diastolic congestive heart failure, present on admission, active -Echo underwhelming, although she probably does have some early diastolic failure and bilateral pedal edema. -Continue 60 mg IV torsemide, chlorthalidone and Aldactone to increase diuresis today and likely discontinue tomorrow -Monitor in and out's, daily weights. - Recommend for CHF clinic Acute Hyperkalemia, POA, resolved -Serum potassium 6.2, EKG did not show peaked T waves, mental status intact. -Kayexalate, insulin, Lasix were done and patient improved. -Repeat CMP K trended to normal Elevated troponin of uncertain significance, POA, Resolved -0.027, appears to be at the level previous admission in 2014, felt to be secondary to demand ischemia from pulmonary edema, fluid retention, cardiorenal syndrome, decreased clearance from renal insufficiency, however infarction cannot be ruled out. -Chest pain resolved -Troponin normalized Chronic Morbid obesity, POA, BMI 35.9. Active -Nutrition/dietitian consult -Multiple person assist for lifts and transfers History of CVA and TIA, POA, active -Continue home medications of ASA 81 mg daily, pravastatin 40 mg every night before bed, -Blood pressure and diabetes management as above Chronic pain, POA, active -Secondary to Ely disease -Outpatient medications state MS Contin 30 mg by mouth every 8 hours scheduled, with Dilaudid 4 mg by mouth every 4 hours as needed for pain. -Currently controlling pain with IV Dilaudid and morphine Acetaminophen for mild pain when necessary. Bowel regimen Senna and MiraLAX scheduled and PRN. Zofran when necessary for nausea and vomiting. DVT prophylaxis: SubQ heparin High-risk medications: IV Morphine Pain Evaluation: Adequate Pain Control GI Prophylaxis: H2 homero VTE Prophylaxis: Sub-Q Heparin (Unfractionated) VTE Mechanical Devices: Intermittant Pneumatic CD Resuscitation Status: CPR: Attempt Resuscitation Attending Statement The patient was seen and examined together with Dr. Erickson on 02/03/2017 and I agree with the history, exam and plan as outlined in the note above. . Eric Erickson DO Feb 03, 2017 21:58 Av Calvillo MD Feb 06, 2017 06:33
[2017-02-04] VITALS (8 sets, daily range): BP systolic 153–184; BP diastolic 72–94; PULSE 53–64; RESP 16–23; O2SAT 93–97
[2017-02-04] MEDS: Heparin 5,000 Unit/mL Inj SUBQ SCH ×3 (00:15→15:32)
[2017-02-04] MEDS: Insulin Human REGular 300 Unit/3 mL Inj SUBQ SCH ×3 (02:56→15:29)
--- NOTE | 2017-02-04 05:37 | NUR ---
Vital Signs Pt hypertensive throughout shift with SBP 170s from midnight on; paged, no new orders placed though instructed nursing staff to monitor for pt becoming symptomatic or SBP elevating >185. Pt NPO after midnight, on 1L NC with SPO2 approx. 92-93%. Pt reports still feeling "short of breath" with exertion, reports having to "take a minute" after changing positions to accommodate difficulty breathing. Tele SB 50s.
[2017-02-04] MEDS: Pantoprazole 40 mg ER24 Tablet PO SCH (06:12)
[2017-02-04] MEDS: Senna-Docusate 8.6-50 mg Tablet PO SCH ×2 (08:30→20:04)
[2017-02-04] MEDS: Polyethylene Glycol (PEG) 17 Gm Powder PO SCH (08:30)
[2017-02-04] MEDS ORDERED: LORazepam 0.5 mg Tablet PO ONE (09:05)
[2017-02-04] MEDS: cloNIDine 0.1 mg Tablet PO SCH ×3 (09:06→20:44)
[2017-02-04] MEDS: Sodium Chloride LOK Flush 10 mL Syringe IVFLUSH SCH ×2 (09:07→15:33)
[2017-02-04] MEDS: DULoxetine 30 mg DR Capsule PO SCH (12:53)
--- NOTE | 2017-02-04 14:01 | DRSVH ---
PROCEDURE: 1 DAY PHARMACOLOGICAL STRESS TEST Rest and pharmacological stress myocardial perfusion SPECT with gated imaging and ejection fraction RADIOPHARMACEUTICAL: 11.4 mCi Tc-99m tetrafosmin IV at rest and 32.8 mCi Tc-99m tetrafosmin IV at pea k effect of pharmacological stress. A [id number] was performed. INDICATIONS: 56 year-old woman with pain and shortness of breath. The patient has diabetes, hypertens ion, hyperlipidemia and chronic renal disease. She also has history of congestive heart failure and C [facility]. Evaluate myocardial ischemia. TECHNIQUE: Radiopharmaceutical was injected at peak stress test, and also at rest. SPECT images wer e obtained. SPECT myocardial perfusion images were displayed in short axis, horizontal long axis, an d vertical long axis views. Gated images were reviewed using ImageBrief software. COMPARISON: None. CARDIAC STRESS: A pharmacologic stress test was performed under the supervision of an attending staff, using an infus ion of Lexiscan. Hemodynamic data: There is normal blood pressure and heart rate response to pharmacologic stress. Symptoms: The patient denied anginal chest pain. Aminophylline: 100 mg IV EKG: No diagnostic changes of ischemia; no ectopy. FINDINGS: Raw data: There is good myocardial uptake of radiotracer. No significant motion artifacts. There i s mild breast attenuation artifacts in the anterior wall. Left ventricle function: Gated images demonstrate normal left ventricular wall thickening. No segme ntal wall motion abnormalities. No transient ischemic dilation. Left ventricle resting end diastoli c volume is normal. Left ventricle stress ejection fraction is greater than 70%; normal range is abo ve 45%. Myocardial perfusion: There is normal distribution of activity in the right and left ventricular vincent cardium. Mildly decreased activity in anterior wall is consistent with breast attenuation artifact. IMPRESSION: 1. Normal myocardial perfusion images aside from breast attenuation artifacts. 2. Normal left ventricular volume and systolic function. 3. No chest pain or diagnostic EKG changes for ischemia. PQRS ATTESTATIONS: Measure 322 - Is this imaging test primarily performed on a low-risk surgery patient for preoperative evaluation within 30 days preceding their low-risk non-cardiac surgery? Low-risk surgery is defined as cardiac or myocardial infarction less than 1%, including (but not limited to) endoscopic pr ocedures, superficial procedures, cataract surgery, and excisional breast surgery: Answer: No Measure 323 - Is this imaging test performed primarily for the monitoring of an asymptomatic patient who had percutaneous coronary intervention on the visit date or within 2 years of the visit date? An swer: No Measure 324 - Is this imaging test performed primarily for the initial detection and risk assessment on an asymptomatic, low coronary heart disease patient? Low CHD risk definition = clinicians should consider the maximum number of available patient factors used to estimate risk based on [place] (A TP III criteria), typically age, gender, diabetes, smoking status, and use of blood pressure medicati on, and integrate age appropriate estimates for missing elements, such as LDL or standard blood press ure. Answer: No Dictated by: Hayes Washington M.D. on 02/04/2017 at 13:49 Approved by: Hayes Washington M.D. on 02/04/2017 at 13:59
--- NOTE | 2017-02-04 15:25 | NUR ---
Social Work Note: Continued Discharge Planning Data& Assessment: Per MD in morning rounds, pt is not medically ready for discharge at this time. Pt remains at 1L NC. Pt currently SBA in her room with RN per armed security officer. Pt undergoing stress test today per MD in morning rounds. SW to continue to follow for pt medical progression and MD orders. Plan: Anticipated discharge home via POV when medically ready and follow up at the CHF clinic. SW to continue to follow for pt medical progression and MD orders. Yelena VALVERDE
[2017-02-04] MEDS ORDERED: Glucose 40% Oral Gel 15 Gm Tube PO PRN (16:05)
[2017-02-04] MEDS ORDERED: Dextrose 10% 250 ML IV PRN (16:05)
[2017-02-04] MEDS: Insulin LISPRO 300 Unit/3 mL Inj SUBQ SCH ×2 (17:30→20:52)
--- NOTE | 2017-02-04 19:10 | NUR ---
MIBI/Glucose/HTN Patient romanian speaking only, interpretor used throughout the shift. Patient npo since midnight, down to ID for stress test this a.m. Patient returned to the room at approx 1100. Patient denies pain, nausea or sob at rest. Patient declined amb this shift, but oob to bsc with sba. Patient taking diet well, glucose post lunch was 375, MD notified and new orders recieved. SBP 180's rechecked one hour and SBP 150's. Family aware of possible d/c tomorrow.
[2017-02-04] MEDS ORDERED: Insulin GLARgine 100 Unit/mL Syringe SUBQ SCH (21:00)
--- NOTE | 2017-02-04 22:59 | PCM.PNMED ---
Subjective Date of Service Feb 04, 2017 Subjective Overnight Events: None Patient lying comfortably in bed. Spoke to patient with zoning administrator. She mentioned that she is feeling like something is on her gums like a broken tooth that was bothering her. She is feeling anxious for her lexiscan this morning, more to do with claustrophobia. She did mention after her scan was done that if anything was found on the scan that she would like absolutely no procedures or surgeries done and that she wanted only medication management. This did prompt the discussion about her code status and she felt that if she were to code, she would not want any CPR or intubation. She currently denies any chest pain, shortness of breath, diarrhea, constipation, headache or dizziness. She is still complaining of swelling in her feet and frequent urination due to her meds. Exam Vital Signs Vital Sign - Last Date Time Temp Pulse Resp B/P Pulse Ox O2 Delivery O2 Flow Rate FiO2 02/04/17 19:56 Supplement Oxygen 02/04/17 19:49 36.7 53 163/75 97 1.00 02/04/17 16:37 23 Intake and Output 02/03/17 02/03/17 02/04/17 Cumulative From/Thru 15:00 23:00 07:00 01/29/17 22:55 - 02/04/17 05:29 Intake Total 500 ml 300 ml 6178 ml Output Total 2050 ml 700 ml 30309 ml Balance -1550 ml -400 ml -6022 ml Intake Oral 500 ml 300 ml 5766 ml IV Total 412 ml Output Urine Total 2050 ml 700 ml 86565 ml # Voids 2 # Bowel Movements 0 2 Exam Exam General: No acute distress, well-developed, well-nourished, appropriately interactive. [place] Speaking. HEENT: Normocephalic, atraumatic. Anicteric sclerae, without dentures, no lesions appreciated on gums. Neck: Supple with full range of motion. Cardiovascular: bradycardic with no murmurs, rubs, or gallops appreciated Pulmonary: Clear to auscultation bilaterally with no crackles, wheezes, or rhonchi. Normal respiratory effort with no use of accessory muscles. Abdomen: Bowel tones present. Soft, nontender, nondistended. Extremities: 1-2+ pedal edema bilaterally Neurological: Cranial nerves grossly intact. Psychiatric: Normal mood and affect. Alert and oriented to person, place, and time. Lab and Diagnostics Laboratory Tests 72 Hours Test 02/02/17 03:30 02/03/17 05:35 02/04/17 03:10 White Blood Count 7.1th/mm3 (3.8-10.1) 8.0th/mm3 (3.8-10.1) Red Blood Count 2.83mil/mm3 (3.90-5.20) 2.73mil/mm3 (3.90-5.20) Hemoglobin 8.4g/dL (12.0-15.6) 8.2g/dL (12.0-15.6) 8.4g/dL (12.0-15.6) Hematocrit 27.0% (35.0-46.0) 25.1% (35.0-46.0) 26.6% (35.0-46.0) Mean Corpuscular Volume 95.4fL (81-100) 91.9fL (81-100) Mean Corpuscular Hemoglobin 29.7pg (27.0-35.0) 30.0pg (27.0-35.0) Mean Corpuscular Hemoglobin Concent 31.1% (32.0-37.0) 32.7% (32.0-37.0) Red Cell Distribution Width 12.8% (12.3-15.4) 12.8% (12.3-15.4) Platelet Count 302bil/L (150-400) 284bil/L (150-400) Neutrophils (%) (Auto) 55.8% (40-74) 62.3% (40-74) Lymphocytes (%) (Auto) 31.8% (14-46) 27.5% (14-46) Monocytes (%) (Auto) 7.9% (4-12) 6.9% (4-12) Eosinophils (%) (Auto) 3.8% (0-5) 2.4% (0-5) Basophils (%) (Auto) 0.6% (0-3) 0.6% (0-3) Sodium Level 140mEq/L (134-144) 139mEq/L (134-144) 138mEq/L (134-144) Potassium Level 4.7mEq/L (3.5-5.2) 5.2mEq/L (3.5-5.2) 4.6mEq/L (3.5-5.2) Chloride Level 97mEq/L (97-108) 96mEq/L (97-108) 96mEq/L (97-108) Carbon Dioxide Level 29mmol/L (18-29) 28mmol/L (18-29) 29mmol/L (18-29) Blood Urea Nitrogen 32mg/dL (6-24) 35mg/dL (6-24) 36mg/dL (6-24) Creatinine 2.04mg/dL (0.57-1.00) 2.07mg/dL (0.57-1.00) 1.87mg/dL (0.57-1.00) Estimat Glomerular Filtration Rate 36mL/min (>59) 35mL/min (>59) 40mL/min (>59) Glucose Level 178mg/dL (60-99) 189mg/dL (60-99) 162mg/dL (60-99) Calcium Level 8.9mg/dL (8.5-10.1) 9.1mg/dL (8.5-10.1) 9.3mg/dL (8.5-10.1) Phosphorus Level 5.9mg/dL (2.5-4.9) Magnesium Level 2.2mg/dL (1.6-2.6) Total Bilirubin 0.2mg/dL (0.0-1.2) Aspartate Amino Transf (AST/SGOT) 12U/L (0-50) Alanine Aminotransferase (ALT/SGPT) 6U/L (0-32) Alkaline Phosphatase 110U/L (25-150) Total Protein 6.3g/dL (6.4-8.4) Albumin 3.3g/dL (3.4-5.0) Pro-B-Type Natriuretic Peptide 1785pg/mL (0-287) Result Diagram: 02/04/1730902/04/17309 Microbiology Blood cultures pending Nasal MRSA negative X-Rays, CTs and MRIs X-RAY CHEST ONE VIEW, PORTABLE IMPRESSION: Probable pulmonary edema with small bilateral pleural effusions. Superimposed or underlying pneumonia cannot be excluded. Dictated by: Vishal Braswell M.D. on 01/30/2017 at 7:54 Approved by: Vishal Braswell M.D. on 01/30/2017 at 7:56 X-RAY CHEST ONE VIEW, PORTABLE IMPRESSION: Persistent bilateral perihilar opacities, consistent with pulmonary edema and/or early bronchopneumonia. Dictated by: Erickson Multani M.D. on 01/31/2017 at 7:42 Approved by: Erickson Multani M.D. on 01/31/2017 at 7:43 . 12-lead ECG EKG: Sinus rhythm rate 66, normal axis, no signs of IVCD, QTC 477, signs of acute infarct, ischemia, or hypertrophy or strain. Additional Diagnostics 02/04 PROCEDURE: 1 DAY PHARMACOLOGICAL STRESS TEST 1. Normal myocardial perfusion images aside from breast attenuation artifacts. 2. Normal left ventricular volume and systolic function. 3. No chest pain or diagnostic EKG changes for ischemia. Assessment & Plan 56-year-old woman with diabetes type II insulin using, chronic renal failure, presents with 3 days of increasing limb edema, shortness of breath and chest pain, denies history of CHF, stated that there was a recent change in her diuretic medication, found to have worsening renal function, likely pulmonary edema, elevated BNP and hyperkalemia. Likely a component of Cardiorenal syndrome pending ECHO. Chest Pain, ongoing Patient mentions substernal chest pressure 6/10 with shortness of breath that occurs with activity since 3 days prior to admission. Likely stable angina. - Patient reports no improvement of chest pain while here - Lexiscan test normal, see above results - Changed code status of patient to DNR/DNI per her wishes after having the lexiscan test. Acute Hypoxemic respiratory failure, POA, resolved -Initial respiratory distress in the emergency department with SPO2 of 90% on 5 L of nasal cannula oxygen -Attributed to pulmonary edema secondary to possible congestive heart failure -BiPAP if needed -Treatment of fluid retention as below. Chronic diabetes mellitus type II Insulin using, uncontrolled, POA, active -Blood glucose is consistently above 160, insulin given as below for potassium management - medium dose correctional insulin -Using home lantus dose (10 units qhs). -Q4 Accu-Cheks -Diabetes education -A1c 9.9 -Stressed importance of cutting out sugar and salt. Acute on Chronic hypertension, controlled, POA, active -Amlodipine 10 mg daily, clonidine 0.3 milligrams 3 times a day, metoprolol tartrate 50 mg twice a day, triamterene/HCTZ 75-50 mg daily -Patient was on metoprolol but this is causing bradycardia and was stopped - discontinued labetolol due to bradycardia - Continue torsemide 60 mg daily - Continue lisinopril 10 mg daily - Consider Imdur if BP not regulated. - Will optimize medications prior to discharge. Acute on chronic renal insufficiency, present on admission, ongoing -Serum creatinine 2.15 on admission, historically elevated but not greater than 1.27. 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 Will stop this prior to discharge. Acute on chronic diastolic congestive heart failure, present on admission, active -Echo underwhelming, although she probably does have some early diastolic failure and bilateral pedal edema. -Continue 60 mg IV torsemide, chlorthalidone and Aldactone to increase diuresis today and likely discontinue tomorrow -Monitor in and out's, daily weights. - Recommend for CHF clinic Acute Hyperkalemia, POA, resolved -Serum potassium 6.2, EKG did not show peaked T waves, mental status intact. -Kayexalate, insulin, Lasix were done and patient improved. -Repeat CMP K trended to normal Elevated troponin of uncertain significance, POA, Resolved -0.027, appears to be at the level previous admission in 2013, felt to be secondary to demand ischemia from pulmonary edema, fluid retention, cardiorenal syndrome, decreased clearance from renal insufficiency, however infarction cannot be ruled out. -Chest pain resolved -Troponin normalized Chronic Morbid obesity, POA, BMI 35.9. Active -Nutrition/dietitian consult -Multiple person assist for lifts and transfers History of CVA and TIA, POA, active -Continue home medications of ASA 81 mg daily, pravastatin 40 mg every night before bed, -Blood pressure and diabetes management as above Chronic pain, POA, active -Secondary to [place] disease -Outpatient medications state MS Contin 30 mg by mouth every 8 hours scheduled, with Dilaudid 4 mg by mouth every 4 hours as needed for pain. -Currently controlling pain with IV Dilaudid and morphine Acetaminophen for mild pain when necessary. Bowel regimen Senna and MiraLAX scheduled and PRN. Zofran when necessary for nausea and vomiting. DVT prophylaxis: SubQ heparin Disposition: Likely discharge tomorrow early afternoon while daughter is here. Pain Evaluation: Adequate Pain Control GI Prophylaxis: H2 homero VTE Prophylaxis: Sub-Q Heparin (Unfractionated) VTE Mechanical Devices: Intermittant Pneumatic CD Resuscitation Status: CPR: Attempt Resuscitation Attending Statement The patient was seen and examined together with Dr. Erickson on 02/04/2017 and I agree with the history, exam and plan as outlined in the note above. . Eric Erickson DO Feb 04, 2017 22:59 Av Calvillo MD Feb 06, 2017 06:36
[2017-02-05 00:04] VITALS: BP 179/70; PULSE 56; RESP 19; O2SAT 92
[2017-02-05] MEDS: Sodium Chloride LOK Flush 10 mL Syringe IVFLUSH SCH ×2 (00:06→11:18)
[2017-02-05] MEDS: Heparin 5,000 Unit/mL Inj SUBQ SCH ×2 (00:17→11:17)
[2017-02-05 02:51] VITALS: PULSE 54
[2017-02-05 03:10] VITALS: BP 185/78; PULSE 60; RESP 16; O2SAT 96
[2017-02-05 04:00] LABS: BASOPHILS % (AUTO) 0.3 % (0-3); EOSINOPHILS % (AUTO) 1.9 % (0-5); MONOCYTES % (AUTO) 7.7 % (4-12); Mean Corpuscular Hemoglobin 29.6 pg (27.0-35.0); Mean Corpuscular Volume 94.1 fL (81-100); NEUTROPHILS % (AUTO) 63.9 % (40-74); Platelet Count 312 bil/L (150-400)
--- NOTE | 2017-02-05 04:06 | NUR ---
Activity/BP Tele sinus marilee in 50's. Room air sats in mid-90's while asleep. Up to commode with standby assist. Denies pain. Blood sugars 150-180's. Routeman used for assessment, to discuss plan of care, and answer questions.
[2017-02-05] MEDS: Pantoprazole 40 mg ER24 Tablet PO SCH (06:24)
[2017-02-05 08:00] VITALS: PULSE 55
[2017-02-05 10:21] VITALS: BP 144/74; PULSE 66; RESP 16; O2SAT 95
[2017-02-05] MEDS: Polyethylene Glycol (PEG) 17 Gm Powder PO SCH (11:15)
[2017-02-05] MEDS: cloNIDine 0.1 mg Tablet PO SCH (11:17)
[2017-02-05] MEDS: Senna-Docusate 8.6-50 mg Tablet PO SCH (11:17)
[2017-02-05] MEDS: DULoxetine 30 mg DR Capsule PO SCH (11:17)
[2017-02-05] MEDS: Insulin LISPRO 300 Unit/3 mL Inj SUBQ SCH ×2 (11:18→12:38)
[2017-02-05] MEDS ORDERED: LISI-610 PO (13:56)
[2017-02-05] MEDS ORDERED: AMLO5TAB2 PO (13:56)
[2017-02-05] MEDS ORDERED: TORS20TA PO (13:56)
[2017-02-05] MEDS ORDERED: CLON0.1T PO (13:56)
[2017-02-05] MEDS ORDERED: cloNIDine 0.1 mg Tablet PO SCH (14:30)
--- NOTE | 2017-02-05 15:36 | PCM.DIMED ---
Eric Erickson DO 02/05/17 1021: Discharge Instructions Date of Service Feb 05, 2017 Dates of Hospitalization Jan 30, 2017 at 00:57 Discharge Diagnosis Discharge Diagnosis Chest Pain with exertion Acute Hypoxemic respiratory failure Chronic diabetes mellitus type II Insulin using, uncontrolled Acute on Chronic hypertension, controlled Acute on chronic renal insufficiency, present on admission Acute on chronic diastolic congestive heart failure, present on admission Acute Hyperkalemia Elevated troponin of uncertain significance Chronic Morbid obesity History of CVA and TIA, POA Chronic pain Medication Instructions Additional med instructions New medications (Continue all of these until you see Dr. Light, Nephrology Start Torsemide 40 mg by mouth once per day Start Chlorthalidone 25 mg by mouth once per day Lisinopril 10 mg by mouth once per day Amlodipine 10 mg AT NIGHT Clonidine 0.2 mg three times daily STOP Do not take Metoprolol tartrate 50 mg Diet Discharge Diet: Diabetic Activity Discharge Activity: No restrictions Call your provider Call your provider for: Fever or Chills, Shortness of breath, Chest pain, Weakness (unilateral) Patient Instructions Patient Instructions In addition to medication instructions above, See Dr. Light, nephrology and schedule an appointment within 2 weeks [facility] [address] [place] [address] Work on your diet. Avoid sugars, carbohydrates and salt. Go to diabetic education classes. Follow up with your primary care physician in 1-2 weeks and talk about blood pressure medications and management. Follow-up Provider: Cathy Sinclair MD Follow-up with PCP in: 1 week (1- weeks) Provider: Patel Light MD CHF Clinic: 1 week (Please see CHF clinic in 1-2 weeks) Additional Information Please also go to diabetic education classes. If you do not get a call in 1-2 days for scheduling, Call [phone]. Av Calvillo MD 02/06/17 0637: Discharge Instructions Attending's Statement The patient was seen and examined together with Dr. Erickson on 02/05/2017 and I agree with the history, exam and plan as outlined in the note above. . Eric Erickson DO Feb 05, 2017 10:21 Av Calvillo MD Feb 06, 2017 06:37
[2017-02-05 16:40] VITALS: BP 147/71; PULSE 61; RESP 18; O2SAT 95
[2017-02-05 16:41] LABS: Unsaturated Iron Binding 205.7 ug/dL
--- NOTE | 2017-02-05 17:21 | CONS ---
[address] [address] CONSULTATION REPORT PATIENT: ARYAN ALTAMIRANO : 1960 MR#: [id number] ADMIT: 01/30/2017 JOB ID: [id number] DATE OF SERVICE: REQUESTING PHYSICIAN: Av Calvillo MD REASON FOR CONSULTATION: Management of chronic kidney disease and hypertension. CHIEF COMPLAINT: Chest pain. HISTORY OF PRESENT ILLNESS: This is a 56-year-old lady with significant past medical history of type 2 diabetes, hypertension, CVA, who presented to the hospital with a complaint of chest pain and shortness of breath. The patient reported that she started having worsening lower extremity swelling, as well as her arms. She has urinated less despite being on diuretics, triamterene/hydrochlorothiazide. The patient was found to be volume overloaded so she has received multiple diuretics. The patient has lost roughly 10 kg since she has been here. She reported that her lower extremity swelling has gotten much better. However, her blood pressure has been persistently high, running between 140s-180 systolic. The patient has received multiple antihypertensive medications. Fortunately this morning her blood pressure somewhat improved; it came down to 144/74. Her serum creatinine has ranged between 1.9-2.1. The patient has not seen any director of automation. She has been diagnosed with type 2 diabetes and hypertension for at least 10 years. The patient reported that she has a history of diabetic retinopathy. No history of neuropathy. Echocardiogram performed in the hospital showed ejection fraction of 65% to 70%, no significant valvular heart disease. Right ventricular systolic pressure is at 35 mmHg. She also was found to have elevation of troponin, which peaked at 0.027. Her initial BMP was 3040. She had a stress test done on February 04, 2017 which showed normal myocardial perfusion, normal left ventricular volume and systolic function. Her initial UA showed 100 mg/dL of protein, specific gravity 1.015. No significant blood or white blood cells in the urine. PAST MEDICAL HISTORY: 1. Type 2 diabetes with renal manifestation and retinopathy. 2. Hypertension. 3. Pott's disease. 4. CVA. 5. Dyslipidemia. PAST SURGICAL HISTORY: Denies any surgical history. SOCIAL HISTORY: Denies current use of alcohol, tobacco, or illicit drugs. FAMILY HISTORY: No kidney disease in the family. ALLERGIES: No known drug allergies. REVIEW OF SYSTEMS: Fourteen point review of system was performed. HOME MEDICATIONS: Include acetaminophen, amlodipine, aspirin, vitamin D3, clonidine, cranberry, docusate, Cymbalta, Lantus, isoniazid, probiotic, levothyroxine, metoprolol, morphine, multivitamins, pravastatin, pyridoxine, rifampin, triamterene/hydrochlorothiazide, and senna. PHYSICAL EXAMINATION: Vitals: Temperature 36.4, pulse 66, respiratory 16, blood pressure 144/74, O2 sat 95% on nasal cannula. General appearance: Awake, alert, and oriented x3. No acute distress. HEENT: No pallor. No jaundice. No JVD. No lymphadenopathy. No thyroid enlargement. PERRLA. Atraumatic. Moist mucous membranes. Heart: Regular rhythm. Normal S1, S2. No murmurs, rubs, or gallops. Lungs: Clear to auscultation bilaterally. No wheezing. No rhonchi. Abdomen: Soft, obese. Active bowel sounds. Nontender, nondistended. No hepatosplenomegaly. Extremity: Trace edema on the lower extremities. Good perfusion. No rashes. No ecchymosis. LABORATORY: WBC 8.8, hemoglobin 9.0. Sodium 141, potassium 5.0, chloride 98, bicarb 31, BUN 36, creatinine 1.96, calcium 9.6, phosphorus 5.9. ProBNP 1785. ASSESSMENT: 1. Chronic kidney disease, stage 4. Estimated GFR 28 using CKD-EPI. The etiology of chronic kidney disease is secondary to diabetic nephropathy and also hypertensive nephrosclerosis. 2. Uncontrolled hypertension. 3. Fluid overload and lower extremity swelling, resolved. 4. Dyslipidemia. 5. CVA. PLAN: 1. Will continue lisinopril 10 mg once a day. 2. We will decrease the dose of clonidine to 0.2 mg three times a day. Eventually we will try to discontinue this medication given the common side effect which is rebound hypertension. 3. We will continue torsemide at 40 mg once a day. 4. Will continue chlorthalidone 25 mg once a day. 5. The patient will take amlodipine 10 mg at bedtime. 6. The patient will follow low-salt diet, 2 g of sodium a day. 7. We will readjust her antihypertensive medications once we see her in the clinic in two weeks. Meantime if she has any question or concern regarding her blood pressure medications she can contact my office or her primary care physician. 8. Will get a PTH, vitamin D25, ferritin, and iron panel as an add-on test for today. Will go ahead and order kidney sonogram to assess her kidney size to see if she has any increased echogenicity in both kidneys. 9. The patient has to stay away from NSAIDs. Thank you for allowing me to participate in the care of your patient. We will monitor along with you.
--- NOTE | 2017-02-05 17:34 | NUR ---
Discharge 0825 - Clarified with Dr. Baires that he wanted the telemetry to be discontinued. He said yes and it was discontinued. 0930 - Performed her morning assessment with an staff interpreter. Told her this nurse would give her her medications after breakfast per her wishes. 1000 - Discussed her care with Dr. Baires, Dr. Calvillo, and the rest of the multidisciplinary care team during morning rounds. They said she would be discharging today. 1300 - Gave her a [place] CHF educational booklet so she could look over the information and asked staff any questions at the time of discharge. This was explained through the staff interpreter at 0930. 1605 - Paged Dr. Villaseñor to clarify her Provider Communication from about noon. It said to give three of her medications now that had already been given. She said to not double up on the medications. She just wanted to make sure they were given that morning. Explained that they were given late per the patient's request as she wanted to eat her breakfast. She said that was just fine. 1720 - She discharged at this time. Her IV was discontinued intact, she took all her belongings, and she was escorted to her children's care in a wheelchair by the [employer] INST[employer]ER. Was present when the Doctor's discussed her discharge instructions with her, her son, her daughter, and the staff interpreter. The MDs and this nurse spent about 40 minutes in her room discussing things with them. Her children started arguing with each other claiming that the they each did all the work while the sibling did nothing to care for her or cared for her improperly. The MDs de-escalated the situation and then continued to discussed and gave the discharge paperwork to them (prescriptions, care notes, instructions, Nuclear Medication slip). They discussed the POLST form with her and she initially wanted to sign it, but her children "wanted her to live," and convinced her not to sign it.
--- NOTE | 2017-02-05 19:01 | DRSVH ---
PROCEDURE: US RENAL SONOGRAM INDICATIONS: hypertension TECHNIQUE: Real-time scanning was performed of the kidneys and bladder, with image documentation. COMPARISON: None. FINDINGS: Kidneys: Kidneys are normal in size. Right kidney measures 11.3 cm long; left kidney measures 10.2 cm long. Right renal cortical thickness is 1.3 cm; left renal cortical thickness is 1.2 cm. Renal c ortical echotexture is normal. No hydronephrosis or nephrolithiasis. No suspicious solid mass lesio ns. Bladder: Pre-void bladder volume is 41 mL. Post-void residual is 3 mL. Pre-void images demonstrate no intraluminal masses or stones. On pre-void images, neither ureteral jets are noted with color Do ppler interrogation. (Of note, ureteral jets may not be detectable in up to 25% of cases due to insu fficient differences in specific gravity between ureteral and bladder urine). Miscellaneous: No free pelvic fluid. IMPRESSION: Grossly normal appearance the kidneys. Dictated by: Francisco Haney [facility] Interpreted: Sarah Alexander MD on 02/05/2017 at 16:44 Approved by: Sarah Alexander M.D. on 02/05/2017 at 18:59
--- NOTE | 2017-02-05 21:45 | PCM.DC.MED ---
Discharge Summary Date of Service Feb 05, 2017 Dates of Hospitalization Date of Hospital Admission Jan 30, 2017 at 00:57 Date of Discharge: Feb 05, 2017 Providers: Admitting Physician: Av Calvillo MD Primary Care Physician: Cathy Sinclair MD Attending Physician: Av Calvillo MD Freezer Worker: Eric Erickson DO Resident Senior: Mary Ellen Bernabe DO Diagnosis at Time of Discharge Diagnosis at Time of Discharge Chest Pain with exertion Acute Hypoxemic respiratory failure Chronic diabetes mellitus type II Insulin using, uncontrolled Acute on Chronic hypertension, controlled Acute on chronic renal insufficiency, present on admission Acute on chronic diastolic congestive heart failure, present on admission Acute Hyperkalemia Elevated troponin of uncertain significance Chronic Morbid obesity History of CVA and TIA, POA Chronic pain Consultations Nephrology, Nutrition Procedures XRay, CTs & MRIs X-RAY CHEST ONE VIEW, PORTABLE IMPRESSION: Probable pulmonary edema with small bilateral pleural effusions. Superimposed or underlying pneumonia cannot be excluded. Dictated by: Vishal Braswell M.D. on 01/30/2017 at 7:54 Approved by: Vishal Braswell M.D. on 01/30/2017 at 7:56 X-RAY CHEST ONE VIEW, PORTABLE IMPRESSION: Persistent bilateral perihilar opacities, consistent with pulmonary edema and/or early bronchopneumonia. Dictated by: Erickson Multani M.D. on 01/31/2017 at 7:42 Approved by: Erickson Multani M.D. on 01/31/2017 at 7:43 . ECG 12 Lead EKG: Sinus rhythm rate 66, normal axis, no signs of IVCD, QTC 477, signs of acute infarct, ischemia, or hypertrophy or strain. Cardiac Echo Impression Interpretation Summary The left ventricle is normal in size. There is mild concentric left ventricular hypertrophy. The ejection fraction is estimated to be 65-70%. The right ventricle is normal in size, thickness and function. The right ventricular systolic pressure is estimated at 35 mmHg assuming a right atrial pressure of 3 mm Hg. The IVC is of normal diameter and collapses greater than 50% with a sniff. This suggests a low right atrial pressure of 3 mm Hg. There is no pericardial effusion. There is no significant valvular heart disease. No other echocardiographic abnormalities seen. Other Diagnostics 02/04 PROCEDURE: 1 DAY PHARMACOLOGICAL STRESS TEST 1. Normal myocardial perfusion images aside from breast attenuation artifacts. 2. Normal left ventricular volume and systolic function. 3. No chest pain or diagnostic EKG changes for ischemia. 01/30/17 ABG DateTimeAnalyzed 02:43:11 -_ pCO2 ___50.7__ -mmHg 35.0 45.0 pO2 ___72.2__ -mmHg 69.0 116 tHb ____9.2__ -g/dL O2Hb ___92.7__ -% COHb ____1.3__ -% 1.5 MetHb ____0.3__ -% sO2 ___94.1__ -% FIO2 ___37.0__ -% Drawn By MK - Date/Time Notified____ 02:50:00 -_ Oxygen Device 1 __CANNULA - Notified By MK - tO2 ___12.1__ -Vol% Bello test _Positive - Brief History This is a 56-year-old lady with significant past medical history of type 2 diabetes, hypertension, CVA, who presented to the hospital with a complaint of chest pain and shortness of breath. She was admitted for worsening renal function, likely pulmonary edema, elevated BNP, urine sample consistent with urinary tract infection, elevated pro-calcitonin, and hyperkalemia. She was placed on multiple diuretics as she was thought to be volume overloaded and lost 10 kg since she has been here and reported that her swelling has gotten better. Her blood pressure fluctuated from day to day from 140s-180s systolic, despite 6 antihypertensive agents. Patient elicited chest pain did not go away and so she had a stress test done on February 04, 2017 which showed normal myocardial perfusion, normal left ventricular volume and systolic function. After scan, patient stated that she would like to no longer have any procedures done and would like to be managed by medication management only. She stated she did not want any invasive procedures or surgeries at all. This prompted a lengthy discussion with the patient and she insisted her code status be DNR/DNI (02/04/17). POLST was not signed at that time and the following day () after a long discussion with her and her son and daughter at her bedside , she chose not to sign the POLST and stay full code. Nephrology was consulted for poor, but stable kidney function and outpatient medication management was given including chlorthalidone, Lisinopril, clonidine, torsemide and amlodipine. Close follow up in 2 weeks is recommended as well as limited salt intake. Hospital Course 56-year-old woman with diabetes type II insulin using, chronic renal failure, presented with 3 days of increasing limb edema, shortness of breath and chest pain, denied history of CHF, stated that there was a recent change in her diuretic medication, found to have worsening renal function, likely pulmonary edema, elevated BNP and hyperkalemia. Chest Pain on exertion Patient had substernal chest pressure 6/10 with shortness of breath that occurs with activity since 3 days prior to admission. - No improvement of chest pain while here - Lexiscan test normal - Changed code status of patient to DNR/DNI per her wishes after having the lexiscan test. Patient code status should be changed back to full code after discussion with patient and family at the time of discharge. Acute Hypoxemic respiratory failure, resolved -Initial respiratory distress in the emergency department with SPO2 of 90% on 5 L of nasal cannula oxygen -Attributed to pulmonary edema secondary to possible congestive heart failure Chronic diabetes mellitus type II Insulin using, uncontrolled, POA, active -Blood glucose was consistently above 160 - Used medium dose correctional insulin - Home lantus dose (10 units qhs). - Diabetes education given - A1c 9.9 - Stressed importance of cutting out sugar and salt. Acute on Chronic hypertension -Amlodipine 10 mg daily, clonidine 0.3 milligrams 3 times a day, metoprolol tartrate 50 mg twice a day, chlorthalidone torsemide 60 mg daily, lisinopril 10 mg daily. Acute on chronic renal insufficiency, present on admission -Serum creatinine 2.15 on admission, historically elevated but not greater than 1.27 -Likely due to diabetic and hypertensive nephrosclerosis -Patient was on 3 diuretics including torsemide, spironolactone, and chlorthalidone Acute on chronic diastolic congestive heart failure, present on admission -Echo underwhelming, although she probably does have some early diastolic failure and bilateral pedal edema. - diuretics as above - Monitored in and out's, daily weights. Patient had 10 kg weight loss while here - Recommended for CHF clinic Acute Hyperkalemia -Serum potassium 6.2 initially, EKG did not show peaked T waves, mental status intact. -Kayexalate, insulin, Lasix were done and patient improved. -Repeat CMP K trended to normal Elevated troponin of uncertain significance -0.027, appeared to be at the level previous admission in 2013, felt to be secondary to demand ischemia from pulmonary edema, fluid retention, cardiorenal syndrome, decreased clearance from renal insufficiency -Troponin normalized Chronic Morbid obesity, POA, BMI 35.9 -Nutrition/dietitian consulted History of CVA and TIA -Continued home medications of ASA 81 mg daily, pravastatin 40 mg every night before bed -Blood pressure and diabetes management as above Chronic pain -Secondary to [place] disease -Outpatient medications state MS Contin 30 mg by mouth every 8 hours scheduled, with Dilaudid 4 mg by mouth every 4 hours as needed for pain. Exam Vital Signs (Last) Date Time Temp Pulse Resp B/P Pulse Ox O2 Delivery O2 Flow Rate FiO2 02/05/17 16:40 36.6 61 18 147/71 95 Room Air 02/05/17 10:21 1.00 Exam Exam General: No acute distress, well-developed, well-nourished, appropriately interactive. [place] Speaking. HEENT: Normocephalic, atraumatic. Anicteric sclerae, without dentures on, no lesions appreciated on gums. Neck: Supple with full range of motion. Cardiovascular: bradycardic with no murmurs, rubs, or gallops appreciated Pulmonary: Clear to auscultation bilaterally with no crackles, wheezes, or rhonchi. Normal respiratory effort with no use of accessory muscles. Abdomen: Bowel tones present. Soft, nontender, nondistended. Extremities: 1+ pedal edema bilaterally Neurological: Cranial nerves grossly intact. Psychiatric: Normal mood and affect. Alert and oriented to person, place, and time. Test 01/29/17 22:10 01/29/17 23:10 01/30/17 02:09 01/30/17 02:10 Hold Ma Top Tube Received (Received) Lactic Acid Level 1.2mmol/L (0.4-2.0) Uric Acid 6.9mg/dL (2.6-7.2) Prealbumin 12mg/dL (20-40) Thyroid Stimulating Hormone (TSH) 3.530uIU/mL (0.450-4.500) Vitamin B12 Level 183pg/mL (211-946) Folate 5.0ng/mL (>3.0) Test 01/30/17 07:27 01/30/17 12:45 01/30/17 17:28 01/30/17 18:01 Hemoglobin A1c 9.9% (4.8-5.6) Troponin T < 0.010ug/L (0.0-0.011) Hold [place] Top Tube Received (Received) Urine Color Yellow (YELLOW) Urine Appearance Clear (CLEAR,HAZY) Urine pH 5.0 (5.0-8.0) Urine Specific [place] 1.015 (1.003-1.035) Urine Protein 100mg/dL (NEG,TRACE) Urine Glucose (UA) Negativemg/dL (NEGATIVE) Urine Ketones Negativemg/dL (NEGATIVE) Urine Occult Blood Negative (NEGATIVE) Urine Nitrite Negative (NEGATIVE) Urine Bilirubin Negative (NEGATIVE) Urine Urobilinogen Normalmg/dL (NORMAL) Urine Leukocyte Esterase Negative (NEGATIVE) Urine RBC 0-2/hpf (0-2) Urine WBC 0-5/hpf (0-5) Urine Epithelial Cells Few/hpf (NONE-MOD) Urine Crystals None seen (NONE SEEN) Urine Bacteria Few/hpf (NONE-FEW) Urine Hyaline Casts None/lpf (NONE) Urine Granular Casts None seen (NONE SEEN) Urine Waxy Casts None seen (NONE SEEN) Urine Red Blood Cell Casts None seen (NONE SEEN) Urine White Blood Cell Casts None seen (NONE SEEN) Urine Mucus None seen (None Seen) Urine Trichomonas None seen (NONE SEEN) Urine Yeast None (NONE SEEN) Urinalysis Comment None Urine Culture Reflexed Not indicated Test 01/31/17 03:05 02/01/17 03:30 02/02/17 03:30 02/04/17 03:10 Triglycerides Level 118mg/dL (0-149) Cholesterol Level 129mg/dL (100-199) LDL Cholesterol, Calculated 62.4mg/dL (0-99) VLDL Cholesterol 23.600mg/dL HDL Cholesterol 43mg/dL (>39) Cholesterol/HDL Ratio 3.00 (0.0-4.4) Procalcitonin 0.12ng/mL (0.00-0.08) Prothrombin Time 10.6sec (8.1-12.5) Prothromb Time International Ratio 0.99ratio Phosphorus Level 5.9mg/dL (2.5-4.9) Magnesium Level 2.2mg/dL (1.6-2.6) Total Bilirubin 0.2mg/dL (0.0-1.2) Aspartate Amino Transf (AST/SGOT) 12U/L (0-50) Alanine Aminotransferase (ALT/SGPT) 6U/L (0-32) Alkaline Phosphatase 110U/L (25-150) Total Protein 6.3g/dL (6.4-8.4) Albumin 3.3g/dL (3.4-5.0) Pro-B-Type Natriuretic Peptide 1785pg/mL (0-287) Test 02/05/17 03:50 White Blood Count 8.8th/mm3 (3.8-10.1) Red Blood Count 3.04mil/mm3 (3.90-5.20) Hemoglobin 9.0g/dL (12.0-15.6) Hematocrit 28.6% (35.0-46.0) Mean Corpuscular Volume 94.1fL (81-100) Mean Corpuscular Hemoglobin 29.6pg (27.0-35.0) Mean Corpuscular Hemoglobin Concent 31.5% (32.0-37.0) Red Cell Distribution Width 12.6% (12.3-15.4) Platelet Count 312bil/L (150-400) Neutrophils (%) (Auto) 63.9% (40-74) Lymphocytes (%) (Auto) 26.1% (14-46) Monocytes (%) (Auto) 7.7% (4-12) Eosinophils (%) (Auto) 1.9% (0-5) Basophils (%) (Auto) 0.3% (0-3) Sodium Level 141mEq/L (134-144) Potassium Level 5.0mEq/L (3.5-5.2) Chloride Level 98mEq/L (97-108) Carbon Dioxide Level 31mmol/L (18-29) Blood Urea Nitrogen 36mg/dL (6-24) Creatinine 1.96mg/dL (0.57-1.00) Estimat Glomerular Filtration Rate 38mL/min (>59) Glucose Level 194mg/dL (60-99) Calcium Level 9.6mg/dL (8.5-10.1) Iron Level 56ug/dL (35-150) Total Iron Binding Capacity 262ug/dL (250-450) Percent Iron Saturation 21%sat (15-50) Unsaturated Iron Binding 205.7ug/dL Ferritin 47ng/mL (13-150) Parathyroid Hormone (Intact) 88pg/mL (15-65) Microbiology Results Blood cultures pending Nasal MRSA negative Discharge Medications Discharge Medications Amlodipine (Amlodipine) 5 Mg Tablet 10 MG PO HS Prescribed by: MARY ELLEN BERNABE DO Aspirin (Aspirin) 81 Mg Tablet 81 MG PO DAILY (Reported) Clonidine (Clonidine) 0.1 Mg Tablet 0.2 MG PO TID Prescribed by: MARY ELLEN BERNABE DO Docusate Sodium (Colace) 100 Mg Capsule 100 MG PO BID (Reported) Duloxetine (Cymbalta) 60 Mg Capsule.dr 60 MG PO DAILY (Reported) Insulin Glargine (Lantus U100 Insulin Vial) 100 Unit/Ml Vial 10 UNIT SUBQ HS ( Reported) Levothyroxine (Levothyroxine) 50 Mcg Tablet 50 MCG PO DAILY (Reported) Lisinopril (Zestril) 10 Mg Tablet 10 MG PO DAILY Prescribed by: MARY ELLEN BERNABE DO Morphine Sulfate ER (MS Contin) 30 Mg Tablet.er 7.5-15 MG PO BID (Reported) Pravastatin (Pravastatin) 40 Mg Tablet 40 MG PO HS (Reported) Sennosides (Senna) 8.6 Mg Tablet 8.6 MG PO DAILY (Reported) Torsemide (Demadex) 20 Mg Tablet 40 MG PO DAILY Prescribed by: MARY ELLEN BERNABE DO As needed Acetaminophen (Acetaminophen) 500 Mg Capsule 500 MG PO Q6H PRN PRN For Pain ( Reported) Hydromorphone (Dilaudid) 4 Mg Tablet 4 MG PO Q4 PRN PRN For Pain (Reported) Polyethylene Glycol 3350 (Miralax) 17 Gm/Pkt Powd.pack 17 GM PO DAILY PRN PRN For Constipation Prescribed by: SONIDO GRAHAM MD Additional med instructions New medications (Continue all of these until you see Dr. Light, Nephrology Start Torsemide 40 mg by mouth once per day Start Chlorthalidone 25 mg by mouth once per day Lisinopril 10 mg by mouth once per day Amlodipine 10 mg AT NIGHT Clonidine 0.2 mg three times daily STOP Do not take Metoprolol tartrate 50 mg Followup Plan Discharge Diet: Diabetic Discharge Activity: No restrictions Patient Instructions In addition to medication instructions above, See Dr. Light, nephrology and schedule an appointment within 2 weeks [facility] [address] [place] [address] Work on your diet. Avoid sugars, carbohydrates and salt. Go to diabetic education classes. Follow up with your primary care physician in 1-2 weeks and talk about blood pressure medications and management. Follow-up Provider: Cathy Sinclair MD Follow-up with PCP in: 1 week (1- weeks) Provider: Patel Light MD CHF Clinic: 1 week (Please see CHF clinic in 1-2 weeks) Time spent Greater than 30 minutes was spent in preparation of discharge with greater than 50% of that time dedicated to patient counseling and coordination of care. . Attending Statement The patient was seen and examined together with Dr. Erickson on 02/05/2017 and I agree with the history, exam and plan as outlined in the note above. . copies to: Patel Light MD; [facility]; Cathy Sinclair MD, Malik A DO Feb 05, 2017 21:45 Av Calvillo MD Feb 06, 2017 06:36
--- NOTE | 2017-02-09 14:29 | NUR ---
Follow up phone for CHF patients Date: 02/09/17 Time: 2994 Information Discussed: spoke with pt's daughter/caregiver, anish, via third shift lieutenant [phone] denies problems or concerns since discharge is going to purchase a scale today and document daily weights has follow up with Dr Sinclair at [facility] is interested in CHF clinic; will fax referral request to Questions patient had: none at this time
== END 2017-02-05 17:25 | disposition home or self-care (01) | DRG 291 ==
LOC: SED 22:48 → EDUNIT# 22:48 → EDBD 22:48 → PCC 01-30 00:57 → CCU 01-30 03:18 → PCC 01-30 08:39
PROVIDERS: ADMIT Internal Medicine; ATTEND Internal Medicine
PROC: 4A033R1 Measurement of Arterial Saturation, Peripheral, Percutaneous Approach (ICD-10-PCS; principal; 2017-01-30)
DX: I50.33 Acute on chronic diastolic (congestive) heart failure (principal); J96.01 Acute respiratory failure with hypoxia; N39.0 Urinary tract infection, site not specified; I24.8 Other forms of acute ischemic heart disease; N18.4 Chronic kidney disease, stage 4 (severe); A18.01 Tuberculosis of spine; Z68.42 Body mass index [BMI] 45.0-49.9, adult; E66.01 Morbid (severe) obesity due to excess calories; E78.5 Hyperlipidemia, unspecified; E11.65 Type 2 diabetes mellitus with hyperglycemia; E87.5 Hyperkalemia; E11.22 Type 2 diabetes mellitus with diabetic chronic kidney disease; I12.9 Hypertensive chronic kidney disease with stage 1 through stage 4 chronic kidney disease, or unspecified chronic kidney disease; E11.319 Type 2 diabetes mellitus with unspecified diabetic retinopathy without macular edema; E11.21 Type 2 diabetes mellitus with diabetic nephropathy; Z86.73 Personal history of transient ischemic attack (TIA), and cerebral infarction without residual deficits; Z79.82 Long term (current) use of aspirin; Z79.4 Long term (current) use of insulin